=== PATIENT | female | born 1985 | race Two or more races ===

== ENCOUNTER 2024-12-10 14:09 | Outpatient (AMB) | payer MEDICAID, SELFPAY ==
[2024-12-10 14:31] VITALS: BP 131/82; PULSE 68; RESP 14; TEMP 36.6; O2SAT 96; BMI 35.3
--- NOTE | 2024-12-10 14:31 | OBCLNT_ITS ---
Vital Signs 12/10/24 14:31 Height 1.4 m Height Method Measured Weight 68.946 kg Weight Measurement Method Standing Scale BMI 35.3 BP 131/82 H Blood Pressure Source Automatic Cuff Blood Pressure Location Left Upper Arm Position Sitting Respiration 14 Pulse 68 Pulse Source Monitor Temp 98 F Temp Source Oral Pulse Oximetry (%) 96 Oxygen Delivery Method Room Air Allergies/Home Meds Allergies & Medications Allergies No Known Allergies Allergy (Verified 12/10/24 14:32) Medication Reconciliation No Known Home Medications 12/10/24 [History Confirmed 12/10/24] Intake Visit Data Collection New Patient or Established: New Patient (never been to [facility]) Reason for Visit:: Establishment of care, nausea Seen by Clinical Staff ONLY (RN/MA): No Air Traffic Coordinator Required: Yes Air Traffic Coordinator's name/title: JAIME ENCARNACION Do You Feel Safe at Home: Yes Authorities Contacted: N/A PCP or OBGYN visit in last 3 months: No Hx Now: Yes Are you currently on any form of Control: No Last menstrual period: 09/14/24 Pain Present Currently: No Pain Scale Used: Johnson-Mcfarland/Numerical Pain scale:: 0 Smoking Status Smoking Status: Never smoker Questionnaires Covid-19 Vaccine Questionnaire Has patient been vacinated for Covid-19 Have you been vacinated for Covid-19: No PHQ-9 PHQ-2 Over the last 2 weeks, how often have you been bothered by any of the following problems? 1. Little interest or pleasure in doing things: not at all 2. Feeling down, depressed, or hopeless: not at all Total score: 0 PHQ-9 3. Trouble falling or staying asleep, or sleeping too much: Not at all 4. Feeling tired or having little energy: Not at all 5. Poor appetite or overeating: Not at all 6. Feeling bad about yourself - or that you are a failure or have let yourself or your family down: Not at all 7. Trouble concentrating on things, such as reading the newspaper or watching television: Not at all 8. Moving or speaking so slowly that other people could have noticed? - Or the opposite - being so fidgety or restless that you have been moving around a lot more than usual: not at all 9. Thoughts that you would be better off or of hurting yourself in some way: Not at all Total score: 0 Source: Developed by Drs. Yung Cintron, Tracey Sood, Jesse Trejo and colleagues, with an educational migue from [employer]. Depression screen completed yes Social History Living Situation History Marital Status: Lives With: Family Housing Other:: MOBILE HOME Tobacco History Smoking Status: Never smoker Second Hand Smoke Exposure: No Alcohol History Alcohol Intake: Never Domestic Abuse History Do You Feel Safe at Home: Yes Past Medical History Past Medical History Have you ever been diagnosed with any of the following: History of Present Illness HPI Narrative Adri Carrizales is a 39-year-old woman presenting for establishment of care. She reports a last menstrual period of September 14, 2024, placing her at 12 weeks and 3 days gestation with an estimated due date of June 21, 2025. The patient's primary complaint is nausea associated with her . She denies vomiting but is experiencing significant nausea. The onset and duration of this symptom are not specified. No aggravating or alleviating factors are mentioned. The severity and impact on daily functioning are not detailed. Adri has a history of chronic hypertension, which is noted to be a concern in this . Her blood pressure is reported to be elevated during this visit, prompting the need for additional blood tests. The patient has had three previous vaginal deliveries, indicating this is her fourth . No complications from previous pregnancies are mentioned. Obstetric History - GPAL: A0 L3 - Current : - Gestational age: 12 weeks and 3 days by last menstrual period - Estimated due date: June 21, 2025 - Last menstrual period: September 14, 2024 - history: - Three previous vaginal deliveries Medical History - Chronic hypertension Medications and Supplements - vitamins Social History - Language: Uzbek-speaking, requires residential program coordinator Review of Systems General: Negative for fever, chills, fatigue, muscle aches, appetite or weight change. Gastrointestinal: Positive for nausea. Negative for vomiting. OB Ultrasound OB Ultrasound Gestational sac assessment: Presence, location, size, shape: - Gestational age: 12 weeks and 5 days - heart rate: 151 bpm (normal) OB Initial Visit OB Flowsheet OB Flowsheet Initial Weight: Not Recorded Date -?-?-?-?-?-?-?-?-?-?-?-?- EGA Weight Edema CTX Effacement BP Fundal ht Pres Dilation Effacement Station Visit Note Alb Glu FHR Mov 12/10/24 -?-?-?-?-?-?-?-?-?-?-?-?- 12w 3d 68.946 kg 131/82 Valeriy Carrizales, 39-year-old at 12w3d gestation (LMP 09/14/2024, [place] 06/21/2025), presents to establish care. No CTX/LOF/VB. No DUKES/VS, Epig/RUQ pain. Reports nausea without vomiting. History of chronic hypertension. BP elevated today. Air Traffic Coordinator used (Uzbek-speaking only). Ultrasound (12/10/2024): FHR 151 bpm, GA 12w5d (consistent with LMP). Assessment & Plan: at 12w3d with confirmed intrauterin e . History of chronic hypertension. Advanced maternal age. Continue vitamins Prescribe antiemetic for nausea Order labs due to elevated BP Add advanced maternal age to problem lis t Follow-up in 4 weeks for routine care and BP monitoring 145 Menstrual History Menstrual reliability: definite Flow: normal Menstrual regularity: regular Monthly: Yes Age at menarche: 14 On control pills at conception: No Date of positive home test: 11/01/24 Associated symptoms (LMP): Reports nausea and vomiting OB History : 4 Para: 3 # of Living Children: 3 Delivery History 1st : Child's name: ANNELIESE date: 09/27/10 sex: male Delivery type: vaginal History of depression before or after : No 2nd : Child's name: JENNY date: 04/07/12 sex: male Delivery type: vaginal History of depression before or after : No 3rd : Child's name: MAXIMUS date: 07/08/16 sex: male Delivery type: vaginal History of depression before or after : No Infection History & Risk Evaluation History of STDs: none Genetic Screening & History Genetic Screening/Teratology Counseling - Includes patient, baby's father, or anyone in either family with: 1. Patient's age 35 years or older as of estimated date of delivery: Yes 2. Thalassemia (Sammarinese, Occitan, Mediterranean, or Background); MCV less than 80: No 3. Neural Tube Defect (Meningomyelocele, Spina Bifida, or Anencephaly): No 4. Congenital Heart Defect: No 5. Down Syndrome: No 6. Edvin-Sachs (Ashkenazi Roman Catholic, Cajun, Japanese Bahamian): No 7. Jaren Disease (Ashkenazi Roman Catholic): No 8. Familial Dysautonomia (Ashkenazi Roman Catholic): No 9. Sickle Cell Disease or Trait (): No 10. Hemophilia or other blood disorders: No 11. Muscular Dystrophy: No 12. Cystic Fibrosis: No 13. Jose Angel's Chorea: No 14. Mental Retardation/Autism: No 15. Other inherited genetic or chromosomal disorder: No 16. Maternal Metabolic Disorder (EG,TYPE 1 Diabetes, PKU): No 17. Patient or baby's father had a child with defects not listed above: No 18. Recurrent loss or a stillbirth: No 19. Medications (including supplements, vitamins, herbs or otc drugs)/illicit/recreational drugs/alcohol since last menstrual period: No 20. Any other: No Infection History 1. Live with someone with TB or exposed to TB: No 2. Rash or viral illness since last menstrual period: No 3. Hepatitis B,C: No Other (see comments) Source: [employer] Review of Systems Gastrointestinal Gastrointestinal: Reports nausea and Reports vomiting Exam General General Appearance: alert, in no apparent distress and healthy appearing Head Head exam: atraumatic Neck Neck exam: Present normal inspection and trachea midline Chest Chest inspection: Present normal inspection and symmetric chest wall rise External exam: Present normal external exam; Absent tenderness Neuro Neurological exam: Present oriented X3 Psych Psychiatric exam: Present normal affect and normal mood Assessment & Plan Diagnosis / Problem List (1) Supervision of high risk , unspecified, first trimester: Status: Acute (2) Advanced maternal age affecting , antepartum: Status: Acute (3) Nausea and vomiting during : Status: Acute (4) Chronic hypertension during , antepartum: Status: Acute Plan Adri Carrizales, 39-year-old , presents at 12 weeks and 3 days gestation for establishment of care with a history of chronic hypertension. Intrauterine Assessment: Patient reports last menstrual period on September 14, 2024, giving an estimated due date of June 21, 2025. Ultrasound confirms gestational age of 12 weeks and 5 days, which is consistent with reported dates. heart rate of 151 bpm, which is within normal range. Plan: - Continue care - Follow-up appointment in 4 weeks - Prescribe vitamins Nausea of Assessment: Patient reports experiencing nausea without vomiting. Plan: - Prescribe antiemetic medication Chronic hypertension Assessment: Patient has a history of chronic hypertension. Blood pressure is noted to be elevated during this visit. Plan: - Order additional blood tests due to elevated blood pressure - Continue monitoring blood pressure throughout Advanced maternal age Assessment: Patient is 39 years old, which classifies her as advanced maternal age for this . Plan: - Add advanced maternal age to problem list - Provide appropriate counseling and monitoring throughout Office Procedures OB Clinic LOC & Office Proc's Nursing/Assessment Patient Status: Established Patient OB Clinic Nursing Assessment: Medication Reconciliation, Update PMH in EMR and Vital Signs OB Clinic Coordination of Care: AMA, Complex Care and Chronic Disease 1-5, Consent,records obtained, informed consent, Education Simp Pt/Fam, Lab and Imaging orders, Results/Orders obtained and Staff clarify orders Special Needs: Heart tones Established Patient Charge Established Patient Point Assignment: 155 Established Patient Point Charge: EP Level 4 (120-155) Bedside Ultrasounds US Transabdominal >14 weeks at bedside: Yes
== END 2024-12-10 15:08 | disposition home or self-care (01) ==
LOC: HODSOBC 14:09
PROVIDERS: Supervising Provider Obstetrics & Gynecology; Visit Provider Obstetrics & Gynecology
DX: O09.521 Supervision of elderly multigravida, first trimester (principal); O09.891 Supervision of other high risk pregnancies, first trimester; O10.911 Unspecified pre-existing hypertension complicating pregnancy, first trimester; O21.9 Vomiting of pregnancy, unspecified; Z3A.12 12 weeks gestation of pregnancy
CPT/HCPCS: 76805; 99214; G0463

== ENCOUNTER 2025-01-07 13:56 | Outpatient (AMB) | payer MEDICAID, SELFPAY ==
[2025-01-07 14:39] VITALS: BP 113/73; PULSE 86; RESP 15; TEMP 36.8; O2SAT 98; BMI 35.2
--- NOTE | 2025-01-07 14:39 | OBCLNT_ITS ---
Vital Signs 01/07/25 14:39 Height 1.4 m Height Method Stated Weight 69.003 kg Weight Measurement Method Standing Scale BMI 35.2 BP 113/73 Blood Pressure Source Automatic Cuff Blood Pressure Location Right Upper Arm Position Sitting Respiration 15 Pulse 86 Pulse Source Monitor Temp 98.3 F Temp Source Oral Pulse Oximetry (%) 98 Oxygen Delivery Method Room Air Allergies/Home Meds Allergies & Medications Allergies No Known Allergies Allergy (Verified 01/07/25 14:41) Medication Reconciliation vitamin with calcium no.72-iron 27 mg-folic acid 1 mg tablet ( Vitamins Plus Low Iron) 1 tab PO QDAY 90 days #90 tabs 12/19/24 [Rx Confirmed 01/07/25] aspirin 81 mg tablet,delayed release (Adult Aspirin Regimen) 81 mg PO QDAY #60 tabs 01/07/25 [Rx] azithromycin 500 mg tablet 1,000 mg (2 x 500 mg) PO QDAY 1 day #2 tabs 01/07/25 [Rx] azithromycin 500 mg tablet 1,000 mg (2 x 500 mg) PO QDAY 1 day #2 tabs 01/07/25 [Rx] nitrofurantoin monohydrate/macrocrystals 100 mg capsule (Macrobid) 100 mg PO BID 7 days #14 caps 01/07/25 [Rx] vitamin-ferrous fumarate 28 mg iron-folic acid 800 mcg tablet ( Vitamins with Minerals) 1 tab PO QDAY 30 days #60 tabs 01/07/25 [Rx] Intake Visit Data Collection New Patient or Established: Established Patient (seen at [facility] within 3 years) Reason for Visit:: CARE Seen by Clinical Staff ONLY (RN/MA): No Cinema Or Theatre Manager Required: No Do You Feel Safe at Home: Yes Authorities Contacted: N/A PCP or OBGYN visit in last 3 months: Yes Hx Now: Yes Are you currently on any form of Control: No Pain Present Currently: No Pain Scale Used: Johnson-Mcfarland/Numerical Pain scale:: 0 Smoking Status Smoking Status: Never smoker Questionnaires Covid-19 Vaccine Questionnaire Has patient been vacinated for Covid-19 Have you been vacinated for Covid-19: Yes PHQ-9 PHQ-2 Over the last 2 weeks, how often have you been bothered by any of the following problems? 1. Little interest or pleasure in doing things: not at all 2. Feeling down, depressed, or hopeless: not at all Total score: 0 PHQ-9 3. Trouble falling or staying asleep, or sleeping too much: Not at all 4. Feeling tired or having little energy: Not at all 5. Poor appetite or overeating: Not at all 6. Feeling bad about yourself - or that you are a failure or have let yourself or your family down: Not at all 7. Trouble concentrating on things, such as reading the newspaper or watching television: Not at all 8. Moving or speaking so slowly that other people could have noticed? - Or the opposite - being so fidgety or restless that you have been moving around a lot more than usual: not at all 9. Thoughts that you would be better off or of hurting yourself in some way: Not at all Total score: 0 Source: Developed by Drs. Yung Cintron, Tracey Sood, Jesse Trejo and colleagues, with an educational migue from [employer]. Depression screen completed yes Social History Living Situation History Marital Status: Single Lives With: Family Housing Other:: MOBILE HOME Tobacco History Smoking Status: Never smoker Second Hand Smoke Exposure: No Alcohol History Alcohol Intake: Never Domestic Abuse History Do You Feel Safe at Home: Yes Care OB Visit Log OB Flowsheet Initial Weight: Not Recorded Date -?-?-?-?-?-?-?-?-?-?-?-?- EGA Weight BP Alb Glu CTX Pres Fundal ht FHR Mov Dilation Station Effacement Hx Notes Visit Note 12/10/24 -?-?-?-?-?-?-?-?-?-?-?-?- 12w 3d 68.946 kg 131/82 145 Adri Carrizales, 39-year-old at 12w3d gestation (LMP 09/14/2024, [place] 06/21/2025), presents to establish care. No CTX/LOF/VB. No DUKES/VS, Epig/RUQ pain. Reports nausea without vomiting. History of chronic hypertension. BP elevated today. Cinema Or Theatre Manager used (Yi-speaking only). Ultrasound (12/10/2024): FHR 151 bpm, GA 12w5d (consistent with LMP). Assessment & Plan: at 12w3d with confirmed intrauterin e . History of chronic hypertension. Advanced maternal age. Continue vitamins Prescribe antiemetic for nausea Order labs due to elevated BP Add advanced maternal age to problem lis t Follow-up in 4 weeks for routine care and BP monitoring 01/07/25 -?--?-?-?-?-?-?-?-?-?-?-?- 16w 3d 69.003 kg 113/73 unknown 17 135 No OB complaints, light FM, need refill of pnv, no sab complaints schedule MFM referral for AMA, refill PNV, start low dose ASA, zithromax 1 gm to patient and partner, discuss with patient lab result and treatment. no sex x 1 week, condom x 2 week, discuss safe sex, also RX for macrobid 100mg bid x 7 for UTI, increase fluid. sab precaution. rtc 4 week schedule MFM referral for AM A, refill PNV, start low dose ASA, zithromax 1 gm to patient and partner, discuss with patient lab result and treatment. no sex x 1 week, condom x 2 week, discuss safe sex, also RX for macrobid 100mg bid x 7 for UTI, increase fluid. sab precaution. rtc 4 week, AFP today [place] Calculator Estimated Delivery Date Method Current WG Current Estimate 06/21/25 LMP (Certain) 16w 3d Other Estimates 06/22/25 Ultrasound #1 16w 2d Office Procedures OB Clinic LOC & Office Proc's Nursing/Assessment Patient Status: Established Patient OB Clinic Nursing Assessment: Medication Reconciliation, Update PMH in EMR and Vital Signs OB Clinic Coordination of Care: Complex Care and Chronic Disease 1-5, Con sent,records obtained, informed consent, Education Simp Pt/Fam, Lab and Imaging orders, Results/Orders obtained and Staff clarify orders Special Needs: Heart tones Established Patient Charge Established Patient Point Assignment: 135 Established Patient Point Charge: EP Level 4 (120-155) Assessment & Plan Diagnosis / Problem List (1) Advanced maternal age affecting , antepartum: Status: Acute (2) Normal in multigravida in second trimester: Status: Acute (3) Positive Chlamydia PCR: Status: Acute Plan RX zithromax 1 gm to pt and partner, no sex x 1 week, condom x 2 week, discuss safe sex and lab results, schedule MFM sono, rx for macrobid 100 bid x7/UTI, start low dose ASA and refill PNV, AFP today, sab precaution Additional Plan Follow Up: 4 Weeks (obc)
== END 2025-01-07 15:07 | disposition home or self-care (01) ==
LOC: HODSOBC 13:56
PROVIDERS: Supervising Provider Advanced Practice Midwife; Visit Provider Advanced Practice Midwife
DX: O09.522 Supervision of elderly multigravida, second trimester (principal); Z3A.16 16 weeks gestation of pregnancy; O09.892 Supervision of other high risk pregnancies, second trimester; O98.312 Other infections with a predominantly sexual mode of transmission complicating pregnancy, second trimester; A56.8 Sexually transmitted chlamydial infection of other sites; O23.42 Unspecified infection of urinary tract in pregnancy, second trimester; N39.0 Urinary tract infection, site not specified; O10.912 Unspecified pre-existing hypertension complicating pregnancy, second trimester
CPT/HCPCS: 99214; G0463

== ENCOUNTER 2025-02-17 13:43 | Outpatient (AMB) | payer MEDICAID, SELFPAY ==
[2025-02-17 13:49] VITALS: BP 114/78; PULSE 92; RESP 17; TEMP 36.7; O2SAT 97; BMI 36.1
--- NOTE | 2025-02-17 13:49 | AMB.OBVISIT ---
Vital Signs 02/17/25 13:49 Height 1.4 m Height Method Measured Weight 70.931 kg Weight Measurement Method Standing Scale BMI 36.1 BP 114/78 Blood Pressure Source Automatic Cuff Blood Pressure Location Right Upper Arm Position Sitting Respiration 17 Pulse 92 Pulse Source Monitor Temp 98.1 F Temp Source Temporal Artery Scan Pulse Oximetry (%) 97 Oxygen Delivery Method Room Air Allergies/Home Meds Allergies & Medications Allergies No Known Allergies Allergy (Verified 02/17/25 13:49) Medication Reconciliation vitamin with calcium no.72-iron 27 mg-folic acid 1 mg tablet ( Vitamins Plus Low Iron) 1 tab PO QDAY 90 days #90 tabs 12/19/24 [Rx Confirmed 02/17/25] aspirin 81 mg tablet,delayed release (Adult Aspirin Regimen) 81 mg PO QDAY #60 tabs 01/07/25 [Rx Confirmed 02/17/25] vitamin-ferrous fumarate 28 mg iron-folic acid 800 mcg tablet ( Vitamins with Minerals) 1 tab PO QDAY 30 days #60 tabs 01/07/25 [Rx Confirmed 02/17/25] azithromycin 500 mg tablet 1,000 mg (2 x 500 mg) PO QDAY 1 day #2 tabs 02/17/25 [Rx] azithromycin 500 mg tablet 1,000 mg (2 x 500 mg) PO QDAY 1 day #2 tabs 02/17/25 [Rx] Intake Visit Data Collection New Patient or Established: Established Patient (seen at [facility] within 3 years) Reason for Visit:: OBC Consent obtained for Telemed Visit: No Seen by Clinical Staff ONLY (RN/MA): No Mid Level Developer Required: No Do You Feel Safe at Home: Yes Authorities Contacted: N/A PCP or OBGYN visit in last 3 months: Yes Date of Last PCP or OBGYN visit: 01/07/25 Hx Now: Yes Are you currently on any form of Control: No Pain Present Currently: No Pain Scale Used: Johnson-Mcfarland/Numerical Pain scale:: 0 Smoking Status Smoking Status: Never smoker Questionnaires Covid-19 Vaccine Questionnaire Has patient been vacinated for Covid-19 Have you been vacinated for Covid-19: Yes PHQ-9 PHQ-2 Over the last 2 weeks, how often have you been bothered by any of the following problems? 1. Little interest or pleasure in doing things: not at all PHQ-9 8. Moving or speaking so slowly that other people could have noticed? - Or the opposite - being so fidgety or restless that you have been moving around a lot more than usual: not at all Source: Developed by Drs. Yung Cintron, Tracey Sood, Jesse Trejo and colleagues, with an educational migue from [employer]. Social History Living Situation History Lives With: Family Housing Other:: MOBILE HOME Tobacco History Smoking Status: Never smoker Second Hand Smoke Exposure: No Alcohol History Alcohol Intake: Never Domestic Abuse History Do You Feel Safe at Home: Yes Care OB Visit Log OB Flowsheet Initial Weight: Not Recorded Date <del>?</del> EGA Weight BP Alb Glu CTX Pres Fundal ht FHR Mov Dilation Station Effacement Hx Notes Visit Note 12/10/24 <del>?</del> 12w 3d 68.946 kg 131/82 145 Adri Carrizales, 39-year-old at 12w3d gestation (LMP 09/14/2024, [place] 06/21/2025), presents to establish care. No CTX/LOF/VB. No DUKES/VS, Epig/RUQ pain. Reports nausea without vomiting. History of chronic hypertension. BP elevated today. Mid Level Developer used (Citizen Of [place]-speaking only). Ultrasound (12/10/2024): FHR 151 bpm, GA 12w5d (consistent with LMP). Assessment & Plan: at 12w3d with confirmed intrauterine . History of chronic hypertension. Advanced maternal age. Continue vitamins Prescribe antiemetic for nausea Order labs due to elevated BP Add advanced maternal age to problem list Follow-up in 4 weeks for routine care and BP monitoring 01/07/25 <del>?</del> 16w 3d 69.003 kg 113/73 unknown 17 135 No OB complaints, light FM, need refill of pnv, no sab complaints schedule MFM referral for AMA, refill PNV, start low dose ASA, zithromax 1 gm to patient and partner, discuss with patient lab result and treatment. no sex x 1 week, condom x 2 week, discuss safe sex, also RX for macrobid 100mg bid x 7 for UTI, increase fluid. sab precaution. rtc 4 week schedule MFM referral for AMA, refill PNV, start low dose ASA, zithromax 1 gm to patient and partner, discuss with patient lab result and treatment. no sex x 1 week, condom x 2 week, discuss safe sex, also RX for macrobid 100mg bid x 7 for UTI, increase fluid. sab precaution. rtc 4 week, AFP today 02/17/25 <del>?</del> 22w 2d 70.931 kg 114/78 absent unknown 22 145 active no OB complaints.fetus active. patient did not P/U zithromax for her or partner, still sex active, , mfm appt. 03/11. no PTL complaints refill zithromax x 2 for pt and partner, no sex, reviewed CT+ with patient and discuss safe sex, keep MFM appt 03/11 [place] Calculator Estimated Delivery Date Method Current WG Current Estimate 06/21/25 LMP (Certain) 22w 2d Other Estimates 06/22/25 Ultrasound #1 22w 1d Office Procedures OB Clinic LOC & Office Proc's Nursing/Assessment Patient Status: Established Patient OB Clinic Nursing Assessment: Medication Reconciliation, Update PMH in EMR and Vital Signs OB Clinic Coordination of Care: Complex Care and Chronic Disease 1-5, Consent,records obtained, informed consent, Education Simp Pt/Fam and Staff clarify orders Special Needs: Heart tones Established Patient Charge Established Patient Point Assignment: 115 Established Patient Point Charge: EP Level 3 (80-115) Assessment & Plan Diagnosis / Problem List (1) Normal in multigravida in second trimester: Status: Acute Plan no sex, discuss safe sex, refill zithromax for patient and partner, keep mfm appt 03/11, discuss ptl precaution, hydrate, rtc 4 wk obc. ERIC [place] Additional Plan Follow Up: 4 Weeks (obc/ERIC)
== END 2025-02-17 14:25 | disposition home or self-care (01) ==
LOC: HODSOBC 13:43
PROVIDERS: Supervising Provider Advanced Practice Midwife; Visit Provider Advanced Practice Midwife
DX: O09.522 Supervision of elderly multigravida, second trimester (principal); Z3A.22 22 weeks gestation of pregnancy
CPT/HCPCS: 99213; G0463

== ENCOUNTER 2025-03-17 13:46 | Outpatient (AMB) | payer MEDICAID, SELFPAY ==
[2025-03-17 13:48] VITALS: BP 118/78; PULSE 90; RESP 18; TEMP 36.6; O2SAT 98; BMI 36.6
--- NOTE | 2025-03-17 13:48 | OBCLNT_ITS ---
Vital Signs 03/17/25 13:48 Height 1.4 m Height Method Stated Weight 71.781 kg Weight Measurement Method Standing Scale BMI 36.6 BP 118/78 Blood Pressure Source Automatic Cuff Blood Pressure Location Left Upper Arm Position Sitting Respiration 18 Pulse 90 Pulse Source Monitor Temp 97.9 F Temp Source Oral Pulse Oximetry (%) 98 Oxygen Delivery Method Room Air Allergies/Home Meds Allergies & Medications Allergies No Known Allergies Allergy (Verified 03/17/25 13:54) Medication Reconciliation vitamins with calcium no.72-iron 27 mg-folic acid 1 mg tablet ( Vitamins Plus Low Iron) 1 tab PO QDAY 90 days #90 tabs 12/19/24 [Rx Confirmed 03/17/25] aspirin 81 mg tablet,delayed release (Adult Aspirin Regimen) 81 mg PO QDAY #60 tabs 01/07/25 [Rx Confirmed 03/17/25] vitamin-ferrous fumarate 28 mg iron-folic acid 800 mcg tablet ( Vitamins with Minerals) 1 tab PO QDAY 30 days #60 tabs 01/07/25 [Rx Confirmed 03/17/25] aspirin 81 mg tablet,delayed release (Adult Aspirin Regimen) 81 mg PO QDAY #60 tabs 03/17/25 [Rx] Intake Visit Data Collection New Patient or Established: Established Patient (seen at [facility] within 3 years) Reason for Visit:: CARE Seen by Clinical Staff ONLY (RN/MA): No Exploration Engineer Required: No Do You Feel Safe at Home: Yes Authorities Contacted: N/A PCP or OBGYN visit in last 3 months: Yes Hx Now: Yes Are you currently on any form of Control: No Pain Present Currently: No Pain Scale Used: Johnson-Mcfarland/Numerical Pain scale:: 0 Smoking Status Smoking Status: Never smoker Questionnaires Covid-19 Vaccine Questionnaire Has patient been vacinated for Covid-19 Have you been vacinated for Covid-19: No PHQ-9 PHQ-2 Over the last 2 weeks, how often have you been bothered by any of the following problems? 1. Little interest or pleasure in doing things: not at all 2. Feeling down, depressed, or hopeless: not at all Total score: 0 PHQ-9 3. Trouble falling or staying asleep, or sleeping too much: Not at all 4. Feeling tired or having little energy: Not at all 5. Poor appetite or overeating: Not at all 6. Feeling bad about yourself - or that you are a failure or have let yourself or your family down: Not at all 7. Trouble concentrating on things, such as reading the newspaper or watching television: Not at all 8. Moving or speaking so slowly that other people could have noticed? - Or the opposite - being so fidgety or restless that you have been moving around a lot more than usual: not at all 9. Thoughts that you would be better off or of hurting yourself in some way: Not at all Total score: 0 Source: Developed by Drs. Yung Cintron, Tracey Sood, Jesse Trejo and colleagues, with an educational migue from [employer]. Depression screen completed yes Social History Living Situation History Lives With: Family Housing Other:: MOBILE HOME Tobacco History Smoking Status: Never smoker Second Hand Smoke Exposure: No Alcohol History Alcohol Intake: Never Domestic Abuse History Do You Feel Safe at Home: Yes Care OB Visit Log OB Flowsheet Initial Weight: Not Recorded Date -?-?-?-?-?-?-?-?-?-?-?-?- EGA Weight BP Alb Glu CTX Pres Fundal ht FHR Mov Dilation Station Effacement Hx Notes Visit Note 12/10/24 -?-?-?-?-?-?-?-?-?-?-?-?- 12w 3d 68.946 kg 131/82 145 Adri Carrizales, 39-year-old at 12w3d gestation (LMP 09/14/2024, [place] 06/21/2025), presents to establish care. No CTX/LOF/VB. No DUKES/VS, Epig/RUQ pain. Reports nausea without vomiting. History of chronic hypertension. BP elevated today. Exploration Engineer used (Lithuanian-speaking only). Ultrasound (12/10/2024): FHR 151 bpm, [place] 12w5d (consistent with LMP). Assessment & Plan: at 12w3d with confirmed intrauterin e . History of chronic hypertension. Advanced maternal age. Continue vitamins Prescribe antiemetic for nausea Order labs due to elevated BP Add advanced maternal age to problem lis t Follow-up in 4 weeks for routine care and BP monitoring 01/07/25 -?-?-?-?-?-?-?-?-?-?-?-?- 16w 3d 69.003 kg 113/73 unknown 17 135 No OB complaints, light FM, need refill of pnv, no sab complaints schedule MFM referral for AMA, refill PNV, start low dose ASA, zithromax 1 gm to patient and partner, discuss with patient lab result and treatment. no sex x 1 week, condom x 2 week, discuss safe sex, also RX for macrobid 100mg bid x 7 for UTI, increase fluid. sab precaution. rtc 4 week schedule MFM referral for AM A, refill PNV, start low dose ASA, zithromax 1 gm to patient and partner, discuss with patient lab result and treatment. no sex x 1 week, condom x 2 week, discuss safe sex, also RX for macrobid 100mg bid x 7 for UTI, increase fluid. sab precaution. rtc 4 week, AFP today 02/17/25 -?-?--?-?-?-?-?-?-?-?-?-?- 22w 2d 70.931 kg 114/78 absent unknown 22 145 active no OB complaints.fetus active. patient did not P/U zithromax for her or partner, still sex active, , mfm appt. 03/11. no PTL complaints refill zithromax x 2 for pt and partner, no sex, reviewed CT+ with patient and discuss safe sex, keep MFM appt 03/1103/17/25 -?-?--?-?-?-?-?-?-?-?-?-?- 26w 2d 71.781 kg 118/78 absent unknown 25 145 active Denies OB complaints. Denies PIH complaints. Reports movement. Patient and partner completed Zithromax as directed. And Macrobid for UTI. Denies leaking, bleeding, contractions. Maternal- medicine follow-up in 6 to 8 weeks Keep appointment for maternal- medicine follow-up sono. Start low-dose baby aspirin. Prescription called to pharmacy. NuSwab today. Ordered third trimester labs along with 24-hour urine and PIH labs. Discussed danger signs and symptoms PTL precautions. Increase fluids. Return in 3 weeks OB check [place] Calculator Estimated Delivery Date Method Current WG Current Estimate 06/21/25 LMP (Certain) 26w 2d Other Estimates 06/22/25 Ultrasound #1 26w 1d Notes Visit Date: 03/17/25 Last Updated by: Dea Lance CNM 39 yo LMP 09/14/24. EDC 06/21/25. OB panel: O+,abs+: Anti [place],no titer. , rpr;;nr, rub imm, hbsag-,hiv-,HC-, GC-/CT+(treated). UTI/tx. UT-, NIPT- /girl. carrier screen-.AFP- Office Procedures OB Clinic LOC & Office Proc's Nursing/Assessment Patient Status: Established Patient OB Clinic Nursing Assessment: Medication Reconciliation, Update PMH in EMR and Vital Signs OB Clinic Coordination of Care: AMA, Complex Care and Chronic Disease 1-5, Consent,records obtained, informed consent, Education Simp Pt/Fam, 1 Ins Authorization, Lab and Imaging orders, Results/Orders obtained and Staff clarify orders Special Needs: Heart tones Established Patient Charge Established Patient Point Assignment: 170 Established Patient Point Charge: EP Level 5 (160-above) Assessment & Plan Diagnosis / Problem List (1) Normal in multigravida in second trimester: Status: Acute (2) Advanced maternal age affecting , antepartum: Status: Acute Plan nuswab for GC?CT ERIC, 3rd tri lab, PIH panel, 24hr urine, f/u mfm in 6 week, call for sono results. discuss PIH precaution, refill low dose ASA. discuss ptl precaution, hydrate. rtc 3 week Additional Plan Follow Up: 3 Weeks (obc)
== END 2025-03-17 14:34 | disposition home or self-care (01) ==
LOC: HODSOBC 13:46
PROVIDERS: Supervising Provider Advanced Practice Midwife; Visit Provider Advanced Practice Midwife
DX: O09.522 Supervision of elderly multigravida, second trimester (principal); Z36.85 Encounter for antenatal screening for Streptococcus B; Z3A.26 26 weeks gestation of pregnancy
CPT/HCPCS: 99215; G0463

== ENCOUNTER 2025-04-07 13:44 | Outpatient (AMB) | payer MEDICAID, SELFPAY ==
[2025-04-07 13:54] VITALS: BP 113/74; PULSE 98; RESP 18; TEMP 36.7; O2SAT 97; BMI 36.6
--- NOTE | 2025-04-07 13:54 | OBCLNT_ITS ---
Vital Signs 04/07/25 13:54 Height 1.4 m Height Method Stated Weight 71.894 kg Weight Measurement Method Standing Scale BMI 36.6 BP 113/74 Blood Pressure Source Automatic Cuff Blood Pressure Location Left Upper Arm Position Sitting Respiration 18 Pulse 98 Pulse Source Monitor Temp 98.1 F Temp Source Oral Pulse Oximetry (%) 97 Oxygen Delivery Method Room Air Allergies/Home Meds Allergies & Medications Allergies No Known Allergies Allergy (Verified 04/07/25 13:54) Medication Reconciliation vitamins with calcium no.72-iron 27 mg-folic acid 1 mg tablet ( Vitamins Plus Low Iron) 1 tab PO QDAY 90 days #90 tabs 12/19/24 [Rx Confirmed 04/07/25] aspirin 81 mg tablet,delayed release (Adult Aspirin Regimen) 81 mg PO QDAY #60 tabs 01/07/25 [Rx Confirmed 04/07/25] vitamin-ferrous fumarate 28 mg iron-folic acid 800 mcg tablet ( Vitamins with Minerals) 1 tab PO QDAY 30 days #60 tabs 01/07/25 [Rx Confirmed 04/07/25] aspirin 81 mg tablet,delayed release (Adult Aspirin Regimen) 81 mg PO QDAY #60 tabs 03/17/25 [Rx Confirmed 04/07/25] blood sugar diagnostic (Blood Glucose Test strips) #10 ea 04/07/25 [Rx] blood-glucose meter #1 ea 04/07/25 [Rx] lancets #100 ea 04/07/25 [Rx] Intake Visit Data Collection New Patient or Established: Established Patient (seen at [facility] within 3 years) Reason for Visit:: CARE Seen by Clinical Staff ONLY (RN/MA): No Emergency Room Orderly Required: No Do You Feel Safe at Home: Yes Authorities Contacted: N/A PCP or OBGYN visit in last 3 months: Yes Hx Now: Yes Are you currently on any form of Control: No Pain Present Currently: No Pain Scale Used: Johnson-Mcfarland/Numerical Pain scale:: 0 Smoking Status Smoking Status: Never smoker Questionnaires Covid-19 Vaccine Questionnaire Has patient been vacinated for Covid-19 Have you been vacinated for Covid-19: No PHQ-9 PHQ-2 Over the last 2 weeks, how often have you been bothered by any of the following problems? 1. Little interest or pleasure in doing things: not at all 2. Feeling down, depressed, or hopeless: not at all Total score: 0 PHQ-9 3. Trouble falling or staying asleep, or sleeping too much: Not at all 4. Feeling tired or having little energy: Not at all 5. Poor appetite or overeating: Not at all 6. Feeling bad about yourself - or that you are a failure or have let yourself or your family down: Not at all 7. Trouble concentrating on things, such as reading the newspaper or watching television: Not at all 8. Moving or speaking so slowly that other people could have noticed? - Or the opposite - being so fidgety or restless that you have been moving around a lot more than usual: not at all 9. Thoughts that you would be better off or of hurting yourself in some way: Not at all Total score: 0 Source: Developed by Drs. Yung Cintron, Tracey Sood, Jesse Trejo and colleagues, with an educational migue from [employer]. Depression screen completed yes Social History Living Situation History Lives With: Family Housing Other:: MOBILE HOME Tobacco History Smoking Status: Never smoker Second Hand Smoke Exposure: No Alcohol History Alcohol Intake: Never Domestic Abuse History Do You Feel Safe at Home: Yes Care OB Visit Log OB Flowsheet Initial Weight: Not Recorded Date -?-?-?-?-?-?-?-?-?-?-?-?- EGA Weight BP Alb Glu CTX Pres Fundal ht FHR Mov Dilation Station Effacement Hx Notes Visit Note 12/10/24 -?-?-?-?-?-?-?-?-?-?-?-?- 12w 3d 68.946 kg 131/82 145 Adri Carrizales, 39-year-old at 12w3d gestation (LMP 09/14/2024, [place] 06/21/2025), presents to establish care. No CTX/LOF/VB. No DUKES/VS, Epig/RUQ pain. Reports nausea without vomiting. History of chronic hypertension. BP elevated today. Emergency Room Orderly used (Frisian-speaking only). Ultrasound (12/10/2024): FHR 151 bpm, [place] 12w5d (consistent with LMP). Assessment & Plan: at 12w3d with confirmed intrauterin e . History of chronic hypertension. Advanced maternal age. Continue vitamins Prescribe antiemetic for nausea Order labs due to elevated BP Add advanced maternal age to problem lis t Follow-up in 4 weeks for routine care and BP monitoring 01/07/25 -?-?-?-?-?-?-?-?-?-?-?-?- 16w 3d 69.003 kg 113/73 unknown 17 135 No OB complaints, light FM, need refill of pnv, no sab complaints schedule MFM referral for AMA, refill PNV, start low dose ASA, zithromax 1 gm to patient and partner, discuss with patient lab result and treatment. no sex x 1 week, condom x 2 week, discuss safe sex, also RX for macrobid 100mg bid x 7 for UTI, increase fluid. sab precaution. rtc 4 week schedule MFM referral for AM A, refill PNV, start low dose ASA, zithromax 1 gm to patient and partner, discuss with patient lab result and treatment. no sex x 1 week, condom x 2 week, discuss safe sex, also RX for macrobid 100mg bid x 7 for UTI, increase fluid. sab precaution. rtc 4 week, AFP today 02/17/25 -?-?-?-?-?-?-?-?-?-?-?-?- 22w 2d 70.931 kg 114/78 absent unknown 22 145 active no OB complaints.fetus active. patient did not P/U zithromax for her or partner, still sex active, , mfm appt. 03/11. no PTL complaints refill zithromax x 2 for pt and partner, no sex, reviewed CT+ with patient and discuss safe sex, keep MFM appt 03/1103/17/25 -?-?-?-?-?-?-?-?-?-?-?-?- 26w 2d 71.781 kg 118/78 absent unknown 25 145 active Denies OB complaints. Denies PIH complaints. Reports movement. Patient and partner completed Zithromax as directed. And Macrobid for UTI. Denies leaking, bleeding, contractions. Maternal- medicine follow-up in 6 to 8 weeks Keep appointment for maternal- medicine follow-up sono. Start low-dose baby aspirin. Prescription called to pharmacy. NuSwab today. Ordered third trimester labs along with 24-hour urine and PIH labs. Discussed danger signs and symptoms PTL precautions. Increase fluids. Return in 3 weeks OB check 04/07/25 -?-?-?-?-?-?-?-?-?-?-?-?- 29w 2d 71.894 kg 113/74 absent unknown 29 140 active No OB complaints today. Reports movement. Denies leaking, bleeding, contractions. Reports compliance with safe sex. Reviewed labs. Discussed labor precautions. Tdap today. Increase fluids. Return in 2 weeks OB check Reviewed labs. Discussed pr eterm labor precautions. Tdap today. Increase fluids. Return in 2 weeks OB check. Discussed 3-hour results. Ordered glucometer, lancets, test strips. Discussed GDM diet and glucose glucose monitoring with patient return in 3 weeks. Will order NST BPP next visit [place] Calculator Estimated Delivery Date Method Current WG Current Estimate 06/21/25 LMP (Certain) 29w 2d Other Estimates 06/22/25 Ultrasound #1 29w 1d 06/21/25 Ultrasound #2 29w 2d 06/21/25 Manual 29w 2d MFM sono on 02/12 9: EFW was 93% Notes Visit Date: 04/07/25 Last Updated by: Dea Lance CNM 03/10: GC/CT ERIC-, A1: 5.0, 3hr gtt: 1,2,3 value high. + GDM Visit Date: 03/17/25 Last Updated by: Dea Lance CNM 39 yo LMP 09/14/24. EDC 06/21/25. OB panel: O+,abs+: Anti [place],no titer. , rpr;;nr, rub imm, hbsag-,hiv-,HC-, GC-/CT+(treated). UTI/tx. UT-, NIPT- /girl. carrier screen-.AFP- Office Procedures OB Clinic LOC & Office Proc's Nursing/Assessment Patient Status: Established Patient OB Clinic Nursing Assessment: Medication Reconciliation, Update PMH in EMR and Vital Signs OB Clinic Coordination of Care: Complex Care and Chronic Disease 1-5, Consent,records obtained, informed consent, Education Simp Pt/Fam, 1 Ins Authorization, Lab and Imaging orders, Results/Orders obtained and Staff clarify orders Special Needs: Heart tones Established Patient Charge Established Patient Point Assignment: 150 Established Patient Point Charge: EP Level 4 (120-155) Immunizations diphth,pertus(acell),tetanus 2.5 Lf unit-8 mcg-5 Lf/0.5mL IM syringe Performing Provider: Dea Lance CNM Performing Location: [facility] Administered by: Donya Barreto MA on 04/07/25 16:06 Dose Route Admin Location Dispensed Lot Number Expiration Date [facility] Recycling Assistant 0.5 mL IM Left Deltoid 0.5 mL [id number] 06/06/27 16452-822-21 [place] VIS Given Date VIS Provided VIS Publication Date 04/07/25 Single Vaccine 24 Eligibility Eligibility Date Funding Source [facility] Assessment & Plan Diagnosis / Problem List (1) Encounter for supervision of high risk in third trimester, antepartum: Status: Acute (2) Diet controlled White classification A1 gestational diabetes mellitus (GDM): Status: Acute Plan Discussed GDM diet. I discussed glucose monitoring in the morning and then every hour after each meal. I ordered glucometer, lancets, strips. Discussed labs. Discussed labor precautions. Increase fluids. Tdap today. Return in 2 weeks OB check. Order NST BPP next visit. TDAP Additional Plan Follow Up: 2 Weeks (obc)
== END 2025-04-07 14:42 | disposition home or self-care (01) ==
LOC: HODSOBC 13:44
PROVIDERS: Supervising Provider Advanced Practice Midwife; Visit Provider Advanced Practice Midwife
DX: O09.523 Supervision of elderly multigravida, third trimester (principal); O09.893 Supervision of other high risk pregnancies, third trimester; O24.410 Gestational diabetes mellitus in pregnancy, diet controlled; Z3A.29 29 weeks gestation of pregnancy; Z23 Encounter for immunization
CPT/HCPCS: 90471; 90715; 99214; G0463

== ENCOUNTER 2025-04-21 14:27 | Outpatient (AMB) | payer MEDICAID, SELFPAY ==
[2025-04-21 14:56] VITALS: BP 113/73; PULSE 84; RESP 16; TEMP 36.8; O2SAT 98; BMI 37.0
--- NOTE | 2025-04-21 14:56 | OBCLNT_ITS ---
Vital Signs 04/21/25 14:56 Height 1.4 m Height Method Stated Weight 72.745 kg Weight Measurement Method Standing Scale BMI 37.0 BP 113/73 Blood Pressure Source Automatic Cuff Blood Pressure Location Left Upper Arm Position Sitting Respiration 16 Pulse 84 Pulse Source Monitor Temp 98.2 F Temp Source Oral Pulse Oximetry (%) 98 Oxygen Delivery Method Room Air Allergies/Home Meds Allergies & Medications Allergies No Known Allergies Allergy (Verified 04/21/25 14:57) Medication Reconciliation vitamins with calcium no.72-iron 27 mg-folic acid 1 mg tablet ( Vitamins Plus Low Iron) 1 tab PO QDAY 90 days #90 tabs 12/19/24 [Rx Confirmed 04/21/25] aspirin 81 mg tablet,delayed release (Adult Aspirin Regimen) 81 mg PO QDAY #60 tabs 01/07/25 [Rx Confirmed 04/21/25] vitamin-ferrous fumarate 28 mg iron-folic acid 800 mcg tablet ( Vitamins with Minerals) 1 tab PO QDAY 30 days #60 tabs 01/07/25 [Rx Confirmed 04/21/25] aspirin 81 mg tablet,delayed release (Adult Aspirin Regimen) 81 mg PO QDAY #60 tabs 03/17/25 [Rx Confirmed 04/21/25] blood-glucose meter #1 ea 04/07/25 [Rx Confirmed 04/21/25] lancets #100 ea 04/07/25 [Rx Confirmed 04/21/25] blood sugar diagnostic (Blood Glucose Test strips) #10 ea 04/21/25 [Rx] metronidazole 500 mg tablet 500 mg PO BID 7 days #14 tabs 04/21/25 [Rx] metronidazole 500 mg tablet 500 mg PO BID 7 days #14 tabs 04/21/25 [Rx] Intake Visit Data Collection New Patient or Established: Established Patient (seen at [facility] within 3 years) Reason for Visit:: CARE Seen by Clinical Staff ONLY (RN/MA): No Typewriter Ribbon Winder Required: No Do You Feel Safe at Home: Yes Authorities Contacted: N/A PCP or OBGYN visit in last 3 months: Yes Hx Now: Yes Are you currently on any form of Control: No Pain Present Currently: No Pain Scale Used: Johnson-Mcfarland/Numerical Pain scale:: 0 Smoking Status Smoking Status: Never smoker Questionnaires Covid-19 Vaccine Questionnaire Has patient been vacinated for Covid-19 Have you been vacinated for Covid-19: Yes PHQ-9 PHQ-2 Over the last 2 weeks, how often have you been bothered by any of the following problems? 1. Little interest or pleasure in doing things: not at all 2. Feeling down, depressed, or hopeless: not at all Total score: 0 PHQ-9 3. Trouble falling or staying asleep, or sleeping too much: Not at all 4. Feeling tired or having little energy: Not at all 5. Poor appetite or overeating: Not at all 6. Feeling bad about yourself - or that you are a failure or have let yourself or your family down: Not at all 8. Moving or speaking so slowly that other people could have noticed? - Or the opposite - being so fidgety or restless that you have been moving around a lot more than usual: not at all 9. Thoughts that you would be better off or of hurting yourself in some way: Not at all Source: Developed by Drs. Yung Cintron, Tracey Sood, Jesse Trejo and colleagues, with an educational migue from [employer]. Depression screen completed yes Social History Living Situation History Lives With: Family Housing Other:: MOBILE HOME Tobacco History Smoking Status: Never smoker Second Hand Smoke Exposure: No Alcohol History Alcohol Intake: Never Domestic Abuse History Do You Feel Safe at Home: Yes Care OB Visit Log OB Flowsheet Initial Weight: Not Recorded Date -?-?-?-?-?-?-?-?-?-?-?-?- EGA Weight BP Alb Glu CTX Pres Fundal ht FHR Mov Dilation Station Effacement Hx Notes Visit Note 12/10/24 -?-?-?-?-?-?-?-?-?-?-?-?- 12w 3d 68.946 kg 131/82 145 Adri Carrizales, 39-year-old at 12w3d gestation (LMP 09/14/2024, [place] 06/21/2025), presents to establish care. No CTX/LOF/VB. No DUKES/VS, Epig/RUQ pain. Reports nausea without vomiting. History of chronic hypertension. BP elevated today. Typewriter Ribbon Winder used (Czech-speaking only). Ultrasound (12/10/2024): FHR 151 bpm, [place] 12w5d (consistent with LMP). Assessment & Plan: at 12w3d with confirmed intrauterin e . History of chronic hypertension. Advanced maternal age. Continue vitamins Prescribe antiemetic for nausea Order labs due to elevated BP Add advanced maternal age to problem lis t Follow-up in 4 weeks for routine care and BP monitoring 01/07/25 -?-?-?-?-?-?-?-?-?-?-?-?- 16w 3d 69.003 kg 113/73 unknown 17 135 No OB complaints, light FM, need refill of pnv, no sab complaints schedule MFM referral for AMA, refill PNV, start low dose ASA, zithromax 1 gm to patient and partner, discuss with patient lab result and treatment. no sex x 1 week, condom x 2 week, discuss safe sex, also RX for macrobid 100mg bid x 7 for UTI, increase fluid. sab precaution. rtc 4 week schedule MFM referral for AM A, refill PNV, start low dose ASA, zithromax 1 gm to patient and partner, discuss with patient lab result and treatment. no sex x 1 week, condom x 2 week, discuss safe sex, also RX for macrobid 100mg bid x 7 for UTI, increase fluid. sab precaution. rtc 4 week, AFP today 02/17/25 -?-?-?-?-?-?-?-?-?-?-?-?- 22w 2d 70.931 kg 114/78 absent unknown 22 145 active no OB complaints.fetus active. patient did not P/U zithromax for her or partner, still sex active, , mfm appt. 03/11. no PTL complaints refill zithromax x 2 for pt and partner, no sex, reviewed CT+ with patient and discuss safe sex, keep MFM appt 03/1103/17/25 -?-?-?-?-?-?-?-?-?-?-?-?- 26w 2d 71.781 kg 118/78 absent unknown 25 145 active Denies OB complaints. Denies PIH complaints. Reports movement. Patient and partner completed Zithromax as directed. And Macrobid for UTI. Denies leaking, bleeding, contractions. Maternal- medicine follow-up in 6 to 8 weeks Keep appointment for maternal- medicine follow-up sono. Start low-dose baby aspirin. Prescription called to pharmacy. NuSwab today. Ordered third trimester labs along with 24-hour urine and PIH labs. Discussed danger signs and symptoms PTL precautions. Increase fluids. Return in 3 weeks OB check 04/07/25 -?-?-?-?-?-?-?-?-?-?-?-?- 29w 2d 71.894 kg 113/74 absent unknown 29 140 active No OB complaints today. Reports movement. Denies leaking, bleeding, contractions. Reports compliance with safe sex. Reviewed labs. Discussed labor precautions. Tdap today. Increase fluids. Return in 2 weeks OB check Reviewed labs. Discussed pr eterm labor precautions. Tdap today. Increase fluids. Return in 2 weeks OB check. Discussed 3-hour results. Ordered glucometer, lancets, test strips. Discussed GDM diet and glucose glucose monitoring with patient return in 3 weeks. Will order NST BPP next visit 04/21/25 -?-?-?-?-?-?-?-?-?-?-?-?- 31w 2d 72.745 kg 113/73 100 mg/dL (74-106) absent unknow n 31 135 active Reports movement. Denies labor. Denies contractions. Denies bleeding. Reports compliance with diet and activity. Test of cure for GC and Chlamydia were negative. And log ging results. Schedule weekly NST BPP. I reordered test strips and Flagyl 500 p.o. twice daily for trichomoniasis. Discussed labor precautions and kick count. Increase fluids. Return in 2 weeks for OB check [place] Calculator Estimated Delivery Date Method Current WG Current Estimate 06/21/25 LMP (Certain) 31w 2d Other Estimates 06/22/25 Ultrasound #1 31w 1d 06/21/25 Ultrasound #2 31w 2d 06/21/25 Manual 31w 2d MFM sono on 02/12 9: EFW was 93% Notes Visit Date: 04/07/25 Last Updated by: Dea Lance CNM 03/10: GC/CT ERIC-, A1: 5.0, 3hr gtt: 1,2,3 value high. + GDM Visit Date: 03/17/25 Last Updated by: Dea Lance CNM 39 yo LMP 09/14/24. EDC 06/21/25. OB panel: O+,abs+: Anti [place],no titer. , rpr;;nr, rub imm, hbsag-,hiv-,HC-, GC-/CT+(treated). UTI/tx. UT-, NIPT- /girl. carrier screen-.AFP- Office Procedures OB Clinic LOC & Office Proc's Nursing/Assessment Patient Status: Established Patient OB Clinic Nursing Assessment: Medication Reconciliation, Update PMH in EMR and Vital Signs OB Clinic Coordination of Care: AMA, Complex Care and Chronic Disease 1-5, Consent,records obtained, informed consent, Education Simp Pt/Fam, 1 Ins Authorization, Lab and Imaging orders, Results/Orders obtained and Staff clarify orders Special Needs: Heart tones Established Patient Charge Established Patient Point Assignment: 170 Established Patient Point Charge: EP Level 5 (160-above) Results Glucose Glucose 100 mg/dL Last Edit by Jessenia Troy MA on 04/21/25 15:22 Assessment & Plan Diagnosis / Problem List (1) Diet controlled White classification A1 gestational diabetes mellitus (GDM): Status: Acute (2) Encounter for supervision of high risk in third trimester, antepartum: Status: Acute Plan Health educator taught patient how to log sugars, how to check sugars with glucometer. GDM diet discussed. Schedule weekly NST BPP's. Refill test trips. Flagyl 500 p.o. twice daily for 7 days for positive trichomoniasis. Discussed labor precautions and kick count twice daily. Return in 2 weeks OB check Additional Plan Follow Up: 2 Weeks (obc)
== END 2025-04-21 15:44 | disposition home or self-care (01) ==
LOC: HODSOBC 14:27
PROVIDERS: Supervising Provider Advanced Practice Midwife; Visit Provider Advanced Practice Midwife
DX: O09.523 Supervision of elderly multigravida, third trimester (principal); O09.893 Supervision of other high risk pregnancies, third trimester; O24.410 Gestational diabetes mellitus in pregnancy, diet controlled; O98.313 Other infections with a predominantly sexual mode of transmission complicating pregnancy, third trimester; A59.9 Trichomoniasis, unspecified; Z3A.31 31 weeks gestation of pregnancy; Z79.82 Long term (current) use of aspirin
CPT/HCPCS: 82948; 99215; G0463

== ENCOUNTER 2025-05-05 08:58 | Outpatient (AMB) | payer MEDICAID, SELFPAY ==
[2025-05-05 09:07] VITALS: BP 112/74; PULSE 84; RESP 16; TEMP 36.6; O2SAT 98; BMI 37.0
--- NOTE | 2025-05-05 09:07 | OBCLNT_ITS ---
Vital Signs 05/05/25 09:07 Height 1.4 m Height Method Stated Weight 72.575 kg Weight Measurement Method Standing Scale BMI 37.0 BP 112/74 Blood Pressure Source Automatic Cuff Blood Pressure Location Left Upper Arm Position Sitting Respiration 16 Pulse 84 Pulse Source Monitor Temp 98 F Temp Source Oral Pulse Oximetry (%) 98 Oxygen Delivery Method Room Air Allergies/Home Meds Allergies & Medications Allergies No Known Allergies Allergy (Verified 05/05/25 09:10) Medication Reconciliation vitamins with calcium no.72-iron 27 mg-folic acid 1 mg tablet ( Vitamins Plus Low Iron) 1 tab PO QDAY 90 days #90 tabs 12/19/24 [Rx Confirmed 05/05/25] aspirin 81 mg tablet,delayed release (Adult Aspirin Regimen) 81 mg PO QDAY #60 tabs 01/07/25 [Rx Confirmed 05/05/25] vitamin-ferrous fumarate 28 mg iron-folic acid 800 mcg tablet ( Vitamins with Minerals) 1 tab PO QDAY 30 days #60 tabs 01/07/25 [Rx Confirmed 05/05/25] aspirin 81 mg tablet,delayed release (Adult Aspirin Regimen) 81 mg PO QDAY #60 tabs 03/17/25 [Rx Confirmed 05/05/25] blood-glucose meter #1 ea 04/07/25 [Rx Confirmed 05/05/25] lancets #100 ea 04/07/25 [Rx Confirmed 05/05/25] blood sugar diagnostic (Blood Glucose Test strips) #10 ea 04/21/25 [Rx Confirmed 05/05/25] Intake Visit Data Collection New Patient or Established: Established Patient (seen at [facility] within 3 years) Reason for Visit:: CARE Seen by Clinical Staff ONLY (RN/MA): No Fsr Required: No Do You Feel Safe at Home: Yes Authorities Contacted: N/A PCP or OBGYN visit in last 3 months: Yes Hx Now: Yes Are you currently on any form of Control: No Pain Present Currently: No Pain Scale Used: Johnson-Mcfarland/Numerical Pain scale:: 0 Smoking Status Smoking Status: Never smoker Questionnaires Covid-19 Vaccine Questionnaire Has patient been vacinated for Covid-19 Have you been vacinated for Covid-19: Yes PHQ-9 PHQ-2 Over the last 2 weeks, how often have you been bothered by any of the following problems? 1. Little interest or pleasure in doing things: not at all 2. Feeling down, depressed, or hopeless: not at all Total score: 0 PHQ-9 3. Trouble falling or staying asleep, or sleeping too much: Not at all 4. Feeling tired or having little energy: Not at all 5. Poor appetite or overeating: Not at all 6. Feeling bad about yourself - or that you are a failure or have let yourself or your family down: Not at all 7. Trouble concentrating on things, such as reading the newspaper or watching television: Not at all 8. Moving or speaking so slowly that other people could have noticed? - Or the opposite - being so fidgety or restless that you have been moving around a lot more than usual: not at all 9. Thoughts that you would be better off or of hurting yourself in some way: Not at all Total score: 0 Source: Developed by Drs. Yung Cintron, Tracey Sood, Jesse Trejo and colleagues, with an educational migue from [employer]. Depression screen completed yes Social History Living Situation History Lives With: Family Housing Other:: MOBILE HOME Tobacco History Smoking Status: Never smoker Second Hand Smoke Exposure: No Alcohol History Alcohol Intake: Never Domestic Abuse History Do You Feel Safe at Home: Yes Care OB Visit Log OB Flowsheet Initial Weight: Not Recorded Date -?-?-?-?-?-?-?-?-?-?-?-?- EGA Weight BP Alb Glu CTX Pres Fundal ht FHR Mov Dilation Station Effacement Hx Notes Visit Note 12/10/24 -?-?-?-?-?-?-?-?-?-?-?-?- 12w 3d 68.946 kg 131/82 145 Adri Carrizales, 39-year-old at 12w3d gestation (LMP 09/14/2024, [place] 06/21/2025), presents to establish care. No CTX/LOF/VB. No DUKES/VS, Epig/RUQ pain. Reports nausea without vomiting. History of chronic hypertension. BP elevated today. Fsr used (Danish-speaking only). Ultrasound (12/10/2024): FHR 151 bpm, [place] 12w5d (consistent with LMP). Assessment & Plan: at 12w3d with confirmed intrauterin e . History of chronic hypertension. Advanced maternal age. Continue vitamins Prescribe antiemetic for nausea Order labs due to elevated BP Add advanced maternal age to problem lis t Follow-up in 4 weeks for routine care and BP monitoring 01/07/25 -?-?-?-?-?-?-?-?-?-?-?-?- 16w 3d 69.003 kg 113/73 unknown 17 135 No OB complaints, light FM, need refill of pnv, no sab complaints schedule MFM referral for AMA, refill PNV, start low dose ASA, zithromax 1 gm to patient and partner, discuss with patient lab result and treatment. no sex x 1 week, condom x 2 week, discuss safe sex, also RX for macrobid 100mg bid x 7 for UTI, increase fluid. sab precaution. rtc 4 week schedule MFM referral for AM A, refill PNV, start low dose ASA, zithromax 1 gm to patient and partner, discuss with patient lab result and treatment. no sex x 1 week, condom x 2 week, discuss safe sex, also RX for macrobid 100mg bid x 7 for UTI, increase fluid. sab precaution. rtc 4 week, AFP today 02/17/25 -?-?-?-?-?-?-?-?-?-?-?-?- 22w 2d 70.931 kg 114/78 absent unknown 22 145 active no OB complaints.fetus active. patient did not P/U zithromax for her or partner, still sex active, , mfm appt. 03/11. no PTL complaints refill zithromax x 2 for pt and partner, no sex, reviewed CT+ with patient and discuss safe sex, keep MFM appt 03/1103/17/25 -?-?-?-?-?-?-?-?-?-?-?-?- 26w 2d 71.781 kg 118/78 absent unknown 25 145 active Denies OB complaints. Denies PIH complaints. Reports movement. Patient and partner completed Zithromax as directed. And Macrobid for UTI. Denies leaking, bleeding, contractions. Maternal- medicine follow-up in 6 to 8 weeks Keep appointment for maternal- medicine follow-up sono. Start low-dose baby aspirin. Prescription called to pharmacy. NuSwab today. Ordered third trimester labs along with 24-hour urine and PIH labs. Discussed danger signs and symptoms PTL precautions. Increase fluids. Return in 3 weeks OB check 04/07/25 -?-?-?-?-?-?-?-?-?-?-?-?- 29w 2d 71.894 kg 113/74 absent unknown 29 140 active No OB complaints today. Reports movement. Denies leaking, bleeding, contractions. Reports compliance with safe sex. Reviewed labs. Discussed labor precautions. Tdap today. Increase fluids. Return in 2 weeks OB check Reviewed labs. Discussed pr eterm labor precautions. Tdap today. Increase fluids. Return in 2 weeks OB check. Discussed 3-hour results. Ordered glucometer, lancets, test strips. Discussed GDM diet and glucose glucose monitoring with patient return in 3 weeks. Will order NST BPP next visit 04/21/25 -?-?--?-?-?-?-?-?-?-?-?-?- 31w 2d 72.745 kg 113/73 100 mg/dL (74-106) absent unknow n 31 135 active Reports movement. Denies labor. Denies contractions. Denies bleeding. Reports compliance with diet and activity. Test of cure for GC and Chlamydia were negative. And log ging results. Schedule weekly NST BPP. I reordered test strips and Flagyl 500 p.o. twice daily for trichomoniasis. Discussed labor precautions and kick count. Increase fluids. Return in 2 weeks for OB check 05/05/25 -?-?-?-?-?-?-?-?-?-?-?-?- 33w 2d 72.575 kg 112/74 absent cephalic 33 145 active Reports good movement. Denies complaints of labor. Compliant with sugars. Goal about 95% of the time. Walk 40 minutes a day. Kick count twice a day. Increase fluids. Patient has a follow-up MFM in 6 weeks Continue to monitor blood sugars 3 times a day. Continue weekly NST BPP. Kick counts twice a day. Patient has a follow-up MFM in May. Return in 2 weeks OB check [place] Calculator Estimated Delivery Date Method Current WG Current Estimate 06/21/25 LMP (Certain) 33w 2d Other Estimates 06/22/25 Ultrasound #1 33w 1d 06/21/25 Ultrasound #2 33w 2d 06/21/25 Manual 33w 2d MFM sono on 02/12 9: EFW was 93% Notes Visit Date: 04/07/25 Last Updated by: Dea Lance CNM 03/10: GC/CT ERIC-, A1: 5.0, 3hr gtt: 1,2,3 value high. + GDM Visit Date: 03/17/25 Last Updated by: Dea Lance CNM 39 yo LMP 09/14/24. EDC 06/21/25. OB panel: O+,abs+: Anti [place],no titer. , rpr;;nr, rub imm, hbsag-,hiv-,HC-, GC-/CT+(treated). UTI/tx. UT-, NIPT- /girl. carrier screen-.AFP- Office Procedures OB Clinic LOC & Office Proc's Nursing/Assessment Patient Status: Established Patient OB Clinic Nursing Assessment: Medication Reconciliation, Update PMH in EMR and Vital Signs OB Clinic Coordination of Care: AMA, Complex Care and Chronic Disease 1-5, Consent,records obtained, informed consent, Education Simp Pt/Fam, 1 Ins Authorization, Lab and Imaging orders, Results/Orders obtained and Staff clarify orders Special Needs: Heart tones Established Patient Charge Established Patient Point Assignment: 170 Established Patient Point Charge: EP Level 5 (160-above) Assessment & Plan Diagnosis / Problem List (1) Diet controlled White classification A1 gestational diabetes mellitus (GDM): Status: Acute (2) Encounter for supervision of high risk in third trimester, antepartum: Status: Acute Plan Begin weekly NST BPP. Discussed kick counts twice a day. Continue to log sugars 4 times a day. Continue GDM diet. Walk 40 minutes a day. Discussed labor precautions. Return in 2 weeks OB check Additional Plan Follow Up: 2 Weeks (obc)
== END 2025-05-05 09:53 | disposition home or self-care (01) ==
LOC: HODSOBC 08:58
PROVIDERS: Supervising Provider Advanced Practice Midwife; Visit Provider Advanced Practice Midwife
DX: O09.893 Supervision of other high risk pregnancies, third trimester (principal); O24.410 Gestational diabetes mellitus in pregnancy, diet controlled; O09.523 Supervision of elderly multigravida, third trimester; Z3A.33 33 weeks gestation of pregnancy
CPT/HCPCS: 99215; G0463

== ENCOUNTER 2025-05-15 13:10 | Outpatient (CLI) | payer MEDICAID, SELFPAY ==
[2025-05-15 14:50] VITALS: BP 111/72; PULSE 75; RESP 100; RESP 16; TEMP 36.8; BMI 30.7
--- NOTE | 2025-05-15 14:51 | XR_ITS ---
Examination: Biophysical profile, ultrasound Date and time of exam: May 15, 2025, 1521 hours INDICATIONS: Nonreactive NST today, diagnosis gestational diabetes Technique: Multiple transabdominal sonographic images of the pelvis abdomen obtained. Attention is directed to the breathing movement, gross body movement, amniotic fluid volume and tone. Findings: Amniotic fluid index 10.6 cm Total biophysical profile is 8 of 8. breathing movement is 2. Gross body movement is 2. tone is 2. Qualitative amniotic fluid volume is 2 Impression: Biophysical profile is 8 of 8.
[2025-05-15 14:53] VITALS: BP 111/72; PULSE 71
[2025-05-15 14:54] VITALS: PULSE 76; O2SAT 100
== END 2025-05-15 17:26 | disposition home or self-care (01) ==
LOC: S4S1 13:11 → S4SX 13:12
PROVIDERS: Referring Provider Advanced Practice Midwife; Visit Provider Advanced Practice Midwife
DX: Z34.93 Encounter for supervision of normal pregnancy, unspecified, third trimester (principal); Z36.9 Encounter for antenatal screening, unspecified; Z3A.34 34 weeks gestation of pregnancy
CPT/HCPCS: 59025; 76819

== ENCOUNTER 2025-05-20 09:23 | Outpatient (RCR) | payer MEDICAID, SELFPAY ==
--- NOTE | 2025-05-06 09:03 | XR_ITS ---
Examination: Biophysical profile, ultrasound Date and time of exam: May 06, 2025, 0937 hours INDICATIONS: Diagnosis gestational diabetes Technique: Multiple transabdominal sonographic images of the pelvis abdomen obtained. Attention is directed to the breathing movement, gross body movement, amniotic fluid volume and tone. Findings: Amniotic fluid index 16.8 cm Total biophysical profile is 8 of 8. breathing movement is 2. Gross body movement is 2. tone is 2. Qualitative amniotic fluid volume is 2 Impression: Biophysical profile is 8 of 8.
[2025-05-06 10:15] VITALS: BP 102/70; PULSE 84; RESP 16; TEMP 37
--- NOTE | 2025-05-13 09:04 | XR_ITS ---
Examination: Biophysical profile, ultrasound Date and time of exam: May 13, 2025, 0911 hours INDICATIONS: Diagnosis gestational diabetes Technique: Multiple transabdominal sonographic images of the pelvis abdomen obtained. Attention is directed to the breathing movement, gross body movement, amniotic fluid volume and tone. Findings: Amniotic fluid index 12.0 cm Total biophysical profile is 8 of 8. breathing movement is 2. Gross body movement is 2. tone is 2. Qualitative amniotic fluid volume is 2 Impression: Biophysical profile is 8 of 8.
[2025-05-13 09:27] VITALS: BP 109/64; PULSE 81; RESP 16; TEMP 36.8
--- NOTE | 2025-05-20 09:29 | XR_ITS ---
Examination: Biophysical profile, ultrasound Date and time of exam: May 20, 2025, 0930 hours INDICATIONS: Diagnosis advanced maternal age, diagnoses gestational diabetes Technique: Multiple transabdominal sonographic images of the pelvis abdomen obtained. Attention is directed to the breathing movement, gross body movement, amniotic fluid volume and tone. Findings: Amniotic fluid index 11.5 cm Total biophysical profile is 8 of 8. breathing movement is 2. Gross body movement is 2. tone is 2. Qualitative amniotic fluid volume is 2 Impression: Biophysical profile is 8 of 8.
[2025-05-20 09:54] VITALS: BP 105/68; PULSE 88; RESP 16; TEMP 37.1
== END 2025-05-20 23:59 | disposition home or self-care (01) ==
LOC: S4S1 09:23
PROVIDERS: Referring Provider Advanced Practice Midwife; Visit Provider Advanced Practice Midwife
DX: O09.523 Supervision of elderly multigravida, third trimester (principal); O24.410 Gestational diabetes mellitus in pregnancy, diet controlled; O09.93 Supervision of high risk pregnancy, unspecified, third trimester; Z3A.35 35 weeks gestation of pregnancy
CPT/HCPCS: 59025; 76819

== ENCOUNTER 2025-05-21 10:42 | Outpatient (AMB) | payer MEDICAID, SELFPAY ==
--- NOTE | 2025-05-21 10:52 | OBCLNT_ITS ---
Vital Signs 05/21/25 10:53 Height 1.4 m Height Method Stated Weight 75.353 kg Weight Measurement Method Standing Scale BMI 38.4 BP 119/77 Blood Pressure Source Automatic Cuff Blood Pressure Location Right Upper Arm Position Sitting Respiration 17 Pulse 73 Pulse Source Monitor Temp 97.9 F Temp Source Temporal Artery Scan Pulse Oximetry (%) 98 Oxygen Delivery Method Room Air Allergies/Home Meds Allergies & Medications Allergies No Known Allergies Allergy (Verified 05/21/25 10:58) Medication Reconciliation vitamin-ferrous fumarate 28 mg iron-folic acid 800 mcg tablet ( Vitamins with Minerals) 1 tab PO QDAY 30 days #60 tabs 01/07/25 [Rx Confirmed 05/21/25] aspirin 81 mg tablet,delayed release (Adult Aspirin Regimen) 81 mg PO QDAY #60 tabs 03/17/25 [Rx Confirmed 05/21/25] blood-glucose meter #1 ea 04/07/25 [Rx Confirmed 05/21/25] blood sugar diagnostic (Blood Glucose Test strips) #50 ea 05/21/25 [Rx] lancets #100 ea 05/21/25 [Rx] Intake Visit Data Collection New Patient or Established: Established Patient (seen at [facility] within 3 years) Reason for Visit:: OBC Seen by Clinical Staff ONLY (RN/MA): No Clinical Services Manager Required: No Do You Feel Safe at Home: Yes Authorities Contacted: N/A PCP or OBGYN visit in last 3 months: Yes Date of Last PCP or OBGYN visit: 05/05/25 Hx Now: Yes Are you currently on any form of Control: No Pain Present Currently: No Pain Scale Used: Johnson-Mcfarland/Numerical Pain scale:: 0 Smoking Status Smoking Status: Never smoker Questionnaires Covid-19 Vaccine Questionnaire Has patient been vacinated for Covid-19 Have you been vacinated for Covid-19: No PHQ-9 PHQ-2 Over the last 2 weeks, how often have you been bothered by any of the following problems? 1. Little interest or pleasure in doing things: not at all 2. Feeling down, depressed, or hopeless: not at all Total score: 0 PHQ-9 3. Trouble falling or staying asleep, or sleeping too much: Not at all 4. Feeling tired or having little energy: Not at all 5. Poor appetite or overeating: Not at all 6. Feeling bad about yourself - or that you are a failure or have let yourself or your family down: Not at all 7. Trouble concentrating on things, such as reading the newspaper or watching television: Not at all 8. Moving or speaking so slowly that other people could have noticed? - Or the opposite - being so fidgety or restless that you have been moving around a lot more than usual: not at all 9. Thoughts that you would be better off or of hurting yourself in some way: Not at all Total score: 0 If you checked off any problems, how difficult have these problems made it for you to do your work, take care of things at home, or get along with other people?: not difficult at all Source: Developed by Drs. Yung Cintron, Tracey Sood, Jesse Trejo and colleagues, with an educational migue from [employer]. Depression screen completed yes Social History Living Situation History Marital Status: Lives With: Family Housing: House Housing Other:: MOBILE HOME Tobacco History Smoking Status: Never smoker Second Hand Smoke Exposure: No Alcohol History Alcohol Intake: Never Domestic Abuse History Do You Feel Safe at Home: Yes Care OB Visit Log OB Flowsheet Initial Weight: Not Recorded Date -?-?-?-?-?-?-?-?-?-?-?-?- EGA Weight BP Alb Glu CTX Pres Fundal ht FHR Mov Dilation Station Effacement Hx Notes Visit Note 12/10/24 -?-?-?-?-?-?-?-?-?-?-?-?- 12w 3d 68.946 kg 131/82 145 Adri Carrizales, 39-year-old at 12w3d gestation (LMP 09/14/2024, [place] 06/21/2025), presents to establish care. No CTX/LOF/VB. No DUKES/VS, Epig/RUQ pain. Reports nausea without vomiting. History of chronic hypertension. BP elevated today. Clinical Services Manager used (Malay-speaking only). Ultrasound (12/10/2024): FHR 151 bpm, [place] 12w5d (consistent with LMP). Assessment & Plan: at 12w3d with confirmed intrauterin e . History of chronic hypertension. Advanced maternal age. Continue vitamins Prescribe antiemetic for nausea Order labs due to elevated BP Add advanced maternal age to problem lis t Follow-up in 4 weeks for routine care and BP monitoring 01/07/25 -?-?-?-?-?-?-?-?-?-?-?-?- 16w 3d 69.003 kg 113/73 unknown 17 135 No OB complaints, light FM, need refill of pnv, no sab complaints schedule MFM referral for AMA, refill PNV, start low dose ASA, zithromax 1 gm to patient and partner, discuss with patient lab result and treatment. no sex x 1 week, condom x 2 week, discuss safe sex, also RX for macrobid 100mg bid x 7 for UTI, increase fluid. sab precaution. rtc 4 week schedule MFM referral for AM A, refill PNV, start low dose ASA, zithromax 1 gm to patient and partner, discuss with patient lab result and treatment. no sex x 1 week, condom x 2 week, discuss safe sex, also RX for macrobid 100mg bid x 7 for UTI, increase fluid. sab precaution. rtc 4 week, AFP today 02/17/25 -?-?-?-?-?-?-?-?-?-?-?-?- 22w 2d 70.931 kg 114/78 absent unknown 22 145 active no OB complaints.fetus active. patient did not P/U zithromax for her or partner, still sex active, , mfm appt. 03/11. no PTL complaints refill zithromax x 2 for pt and partner, no sex, reviewed CT+ with patient and discuss safe sex, keep MFM appt 03/1103/17/25 -?-?-?-?-?-?-?-?-?-?-?-?- 26w 2d 71.781 kg 118/78 absent unknown 25 145 active Denies OB complaints. Denies PIH complaints. Reports movement. Patient and partner completed Zithromax as directed. And Macrobid for UTI. Denies leaking, bleeding, contractions. Maternal- medicine follow-up in 6 to 8 weeks Keep appointment for maternal- medicine follow-up sono. Start low-dose baby aspirin. Prescription called to pharmacy. NuSwab today. Ordered third trimester labs along with 24-hour urine and PIH labs. Discussed danger signs and symptoms PTL precautions. Increase fluids. Return in 3 weeks OB check 04/07/25 -?-?-?-?-?-?-?-?-?-?-?-?- 29w 2d 71.894 kg 113/74 absent unknown 29 140 active No OB complaints today. Reports movement. Denies leaking, bleeding, contractions. Reports compliance with safe sex. Reviewed labs. Discussed labor precautions. Tdap today. Increase fluids. Return in 2 weeks OB check Reviewed labs. Discussed pr eterm labor precautions. Tdap today. Increase flui ds. Return in 2 weeks OB check. Discussed 3-hour results. Ordered glucometer, lancets, test strips. Discussed GDM diet and glucose glucose monitoring with patient return in 3 weeks. Will order NST BPP next visit 04/21/25 -?-?-?-?-?-?-?-?-?-?-?-?- 31w 2d 72.745 kg 113/73 100 mg/dL (74-106) absent unknow n 31 135 active Reports movement. Denies labor. Denies contractions. Denies bleeding. Reports compliance with diet and activity. Test of cure for GC and Chlamydia were negative. And log ging results. Schedule weekly NST BPP. I reordered test strips and Flagyl 500 p.o. twice daily for trichomoniasis. Discussed labor precautions and kick count. Increase fluids. Return in 2 weeks for OB check 05/05/25 -?-?-?-?-?-?-?-?-?-?-?-?- 33w 2d 72.575 kg 112/74 absent cephalic 33 145 active Reports good movement. Denies complaints of labor. Compliant with sugars. Goal about 95% of the time. Walk 40 minutes a day. Kick count twice a day. Increase fluids. Patient has a follow-up MFM in 6 weeks Continue to monitor blood sugars 3 times a day. Continue weekly NST BPP. Kick counts twice a day. Patient has a follow-up MFM in May. Return in 2 weeks OB check 05/21/25 -?-?-?-?-?-?-?-?-?-?-?-?- 35w 4d 75.353 kg 119/77 absent cephalic 35 145 active Reports good movement. Denies leaking or bleeding. Denies contractions, Follow-up [facility] May 30. Sugars are at goal 95%. Continue GDM diet and monitoring sugars. I reordered lancets. Continue biweekly NST BPP. Kick count twice a day. Walk 40 minutes a day. GBS today. Return in a week OB check Follow-up May 30. S ugars are at goal 95%. Continue GDM diet and monitoring sugars. I reordered lancets. Continue biweekly NST BPP. Kick count twice a day. Walk 40 minutes a day. GBS today. Return in a week OB check. IOL 06/14/25 Follow-up [facility] May 30. S ugars are at goal 95%. Continue GDM diet and monitoring sugars. I reordered lancets. Continue biweekly NST BPP. Kick count twice a day. Walk 40 minutes a day. GBS today. Return in a week OB check. IOL 06/14/25. NST/BPP bi wk [place] Calculator Estimated Delivery Date Method Current WG Current Estimate 06/21/25 LMP (Certain) 35w 5d Other Estimates 06/22/25 Ultrasound #1 35w 4d 06/21/25 Ultrasound #2 35w 5d 06/21/25 Manual 35w 5d MFM sono on 02/12 9: EFW was 93% Notes Visit Date: 04/07/25 Last Updated by: Dea Lance CNM 03/10: GC/CT ERIC-, A1: 5.0, 3hr gtt: 1,2,3 value high. + GDM Visit Date: 03/17/25 Last Updated by: Dea Lance CNM 39 yo LMP 09/14/24. EDC 06/21/25. OB panel: O+,abs+: Anti [place],no titer. , rpr;;nr, rub imm, hbsag-,hiv-,HC-, GC-/CT+(treated). UTI/tx. UT-, NIPT- /girl. carrier screen-.AFP- Office Procedures OBC Clinic LOC & Office Proc's Nursing/Assessment Patient Status: Established Patient OB Clinic Nursing Assessment: Medication Reconciliation, Update PMH in EMR and Vital Signs OB Clinic Coordination of Care: Complex Care and Chronic Disease 1-5, Education Complex Pt/Fam, Consent,records obtained, informed consent, Lab and Imaging orders and Staff clarify orders Special Needs: Heart tones Miscellaneous Interventions: Culture Specimen Collection Established Patient Charge Established Patient Point Assignment: 150 Established Patient Point Charge: EP Level 4 (120-155) Assessment & Plan Diagnosis / Problem List (1) Diet controlled White classification A1 gestational diabetes mellitus (GDM): Status: Acute (2) Encounter for supervision of high risk in third trimester, antepartum: Status: Acute Plan Schedule induction of labor for June 14, 2025. Discussed labor precautions and kick count. Continue vitamins. GBS today. Continue GDM diet. I reviewed logging and parameters with patient. And continue weekly NST BPP and patient has a follow-up [facility] May 30 for growth. Return in a week OB check Additional Plan Follow Up: 1 Week (obc)
[2025-05-21 10:53] VITALS: BP 119/77; PULSE 73; RESP 17; TEMP 36.6; O2SAT 98; BMI 38.4
== END 2025-05-21 11:12 | disposition home or self-care (01) ==
LOC: HODSOBC 10:42
PROVIDERS: Supervising Provider Advanced Practice Midwife; Visit Provider Advanced Practice Midwife
DX: O09.893 Supervision of other high risk pregnancies, third trimester (principal); O24.410 Gestational diabetes mellitus in pregnancy, diet controlled; O09.523 Supervision of elderly multigravida, third trimester; Z3A.35 35 weeks gestation of pregnancy; Z36.85 Encounter for antenatal screening for Streptococcus B
CPT/HCPCS: 99214; G0463

== ENCOUNTER 2025-05-22 10:09 | Outpatient (CLI) | payer MEDICAID, SELFPAY ==
[2025-05-22] VITALS (11 sets, daily range): BP systolic 111; BP diastolic 81; PULSE 70–87; RESP 20–99; TEMP 37.1; O2SAT 98–100; BMI 37.5
--- NOTE | 2025-05-22 10:21 | XR_ITS ---
Examination: Biophysical profile, ultrasound Date and time of exam: May 22, 2025, 1047 hours INDICATIONS: Diagnosis advanced maternal age, diagnosis gestational diabetes Technique: Multiple transabdominal sonographic images of the pelvis abdomen obtained. Attention is directed to the breathing movement, gross body movement, amniotic fluid volume and tone. Findings: Amniotic fluid index 11.3 cm Total biophysical profile is 8 of 8. breathing movement is 2. Gross body movement is 2. tone is 2. Qualitative amniotic fluid volume is 2 Impression: Biophysical profile is 8 of 8.
== END 2025-05-22 12:00 | disposition home or self-care (01) ==
LOC: S4S1 10:10 → S4SX 10:10
PROVIDERS: Referring Provider Obstetrics & Gynecology; Visit Provider Obstetrics & Gynecology
DX: Z36.9 Encounter for antenatal screening, unspecified (principal); Z34.83 Encounter for supervision of other normal pregnancy, third trimester; Z3A.35 35 weeks gestation of pregnancy
CPT/HCPCS: 59025; 76819

== ENCOUNTER 2025-05-26 11:12 | Outpatient (AMB) | payer MEDICAID, SELFPAY ==
[2025-05-26 11:24] VITALS: BP 126/82; PULSE 78; RESP 14; TEMP 36.8; O2SAT 98; BMI 38.5
--- NOTE | 2025-05-26 11:24 | AMB.OBVISIT ---
Vital Signs 05/26/25 11:24 Height 1.4 m Height Method Stated Weight 75.466 kg Weight Measurement Method Standing Scale BMI 38.5 BP 126/82 Blood Pressure Source Automatic Cuff Blood Pressure Location Left Upper Arm Position Sitting Respiration 14 Pulse 78 Pulse Source Monitor Temp 98.2 F Temp Source Oral Pulse Oximetry (%) 98 Oxygen Delivery Method Room Air Allergies/Home Meds Allergies & Medications Allergies No Known Allergies Allergy (Verified 05/26/25 11:25) Medication Reconciliation vitamin-ferrous fumarate 28 mg iron-folic acid 800 mcg tablet ( Vitamins with Minerals) 1 tab PO QDAY 30 days #60 tabs 01/07/25 [Rx Confirmed 05/26/25] aspirin 81 mg tablet,delayed release (Adult Aspirin Regimen) 81 mg PO QDAY #60 tabs 03/17/25 [Rx Confirmed 05/26/25] blood-glucose meter #1 ea 04/07/25 [Rx Confirmed 05/26/25] blood sugar diagnostic (Blood Glucose Test strips) #50 ea 05/21/25 [Rx Confirmed 05/26/25] lancets #100 ea 05/21/25 [Rx Confirmed 05/26/25] Intake Visit Data Collection New Patient or Established: Established Patient (seen at [facility] within 3 years) Reason for Visit:: CARE Seen by Clinical Staff ONLY (RN/MA): No Professor Of Family Medicine Required: No Do You Feel Safe at Home: Yes Authorities Contacted: N/A PCP or OBGYN visit in last 3 months: Yes Hx Now: Yes Are you currently on any form of Control: No Pain Present Currently: No Pain Scale Used: Johnson-Mcfarland/Numerical Pain scale:: 0 Smoking Status Smoking Status: Never smoker Questionnaires Covid-19 Vaccine Questionnaire Has patient been vacinated for Covid-19 Have you been vacinated for Covid-19: No PHQ-9 PHQ-2 Over the last 2 weeks, how often have you been bothered by any of the following problems? 1. Little interest or pleasure in doing things: not at all 2. Feeling down, depressed, or hopeless: not at all Total score: 0 PHQ-9 3. Trouble falling or staying asleep, or sleeping too much: Not at all 4. Feeling tired or having little energy: Not at all 5. Poor appetite or overeating: Not at all 6. Feeling bad about yourself - or that you are a failure or have let yourself or your family down: Not at all 7. Trouble concentrating on things, such as reading the newspaper or watching television: Not at all 8. Moving or speaking so slowly that other people could have noticed? - Or the opposite - being so fidgety or restless that you have been moving around a lot more than usual: not at all 9. Thoughts that you would be better off or of hurting yourself in some way: Not at all Total score: 0 Source: Developed by Drs. Yung Cintron, Tracey Sood, Jesse Trejo and colleagues, with an educational migue from [employer]. Depression screen completed yes Social History Living Situation History Lives With: Family Housing: House Housing Other:: MOBILE HOME Tobacco History Smoking Status: Never smoker Second Hand Smoke Exposure: No Alcohol History Alcohol Intake: Never Domestic Abuse History Do You Feel Safe at Home: Yes Care OB Visit Log OB Flowsheet Initial Weight: Not Recorded Date <del>?</del> EGA Weight BP Alb Glu CTX Pres Fundal ht FHR Mov Dilation Station Effacement Hx Notes Visit Note 12/10/24 <del>?</del> 12w 3d 68.946 kg 131/82 145 Adri Carrizales, 39-year-old at 12w3d gestation (LMP 09/14/2024, [place] 06/21/2025), presents to establish care. No CTX/LOF/VB. No DUKES/VS, Epig/RUQ pain. Reports nausea without vomiting. History of chronic hypertension. BP elevated today. Professor Of Family Medicine used (Hebrew-speaking only). Ultrasound (12/10/2024): FHR 151 bpm, [place] 12w5d (consistent with LMP). Assessment & Plan: at 12w3d with confirmed intrauterine . History of chronic hypertension. Advanced maternal age. Continue vitamins Prescribe antiemetic for nausea Order labs due to elevated BP Add advanced maternal age to problem list Follow-up in 4 weeks for routine care and BP monitoring 01/07/25 <del>?</del> 16w 3d 69.003 kg 113/73 unknown 17 135 No OB complaints, light FM, need refill of pnv, no sab complaints schedule MFM referral for AMA, refill PNV, start low dose ASA, zithromax 1 gm to patient and partner, discuss with patient lab result and treatment. no sex x 1 week, condom x 2 week, discuss safe sex, also RX for macrobid 100mg bid x 7 for UTI, increase fluid. sab precaution. rtc 4 week schedule MFM referral for AMA, refill PNV, start low dose ASA, zithromax 1 gm to patient and partner, discuss with patient lab result and treatment. no sex x 1 week, condom x 2 week, discuss safe sex, also RX for macrobid 100mg bid x 7 for UTI, increase fluid. sab precaution. rtc 4 week, AFP today 02/17/25 <del>?</del> 22w 2d 70.931 kg 114/78 absent unknown 22 145 active no OB complaints.fetus active. patient did not P/U zithromax for her or partner, still sex active, , mfm appt. 03/11. no PTL complaints refill zithromax x 2 for pt and partner, no sex, reviewed CT+ with patient and discuss safe sex, keep MFM appt 03/1103/17/25 <del>?</del> 26w 2d 71.781 kg 118/78 absent unknown 25 145 active Denies OB complaints. Denies PIH complaints. Reports movement. Patient and partner completed Zithromax as directed. And Macrobid for UTI. Denies leaking, bleeding, contractions. Maternal- medicine follow-up in 6 to 8 weeks Keep appointment for maternal- medicine follow-up sono. Start low-dose baby aspirin. Prescription called to pharmacy. NuSwab today. Ordered third trimester labs along with 24-hour urine and PIH labs. Discussed danger signs and symptoms PTL precautions. Increase fluids. Return in 3 weeks OB check 04/07/25 <del>?</del> 29w 2d 71.894 kg 113/74 absent unknown 29 140 active No OB complaints today. Reports movement. Denies leaking, bleeding, contractions. Reports compliance with safe sex. Reviewed labs. Discussed labor precautions. Tdap today. Increase fluids. Return in 2 weeks OB check Reviewed labs. Discussed labor precautions. Tdap today. Increase fluids. Return in 2 weeks OB check. Discussed 3-hour results. Ordered glucometer, lancets, test strips. Discussed GDM diet and glucose glucose monitoring with patient return in 3 weeks. Will order NST BPP next visit 04/21/25 <del>?</del> 31w 2d 72.745 kg 113/73 100 mg/dL (74-106) absent unknown 31 135 active Reports movement. Denies labor. Denies contractions. Denies bleeding. Reports compliance with diet and activity. Test of cure for GC and Chlamydia were negative. And logging results. Schedule weekly NST BPP. I reordered test strips and Flagyl 500 p.o. twice daily for trichomoniasis. Discussed labor precautions and kick count. Increase fluids. Return in 2 weeks for OB check 05/05/25 <del>?</del> 33w 2d 72.575 kg 112/74 absent cephalic 33 145 active Reports good movement. Denies complaints of labor. Compliant with sugars. Goal about 95% of the time. Walk 40 minutes a day. Kick count twice a day. Increase fluids. Patient has a follow-up MFM in 6 weeks Continue to monitor blood sugars 3 times a day. Continue weekly NST BPP. Kick counts twice a day. Patient has a follow-up MFM in May. Return in 2 weeks OB check 05/21/25 <del>?</del> 35w 4d 75.353 kg 119/77 absent cephalic 35 145 active Reports good movement. Denies leaking or bleeding. Denies contractions, Follow-up MFM May 30. Sugars are at goal 95%. Continue GDM diet and monitoring sugars. I reordered lancets. Continue biweekly NST BPP. Kick count twice a day. Walk 40 minutes a day. GBS today. Return in a week OB check Follow-up MFM May 30. Sugars are at goal 95%. Continue GDM diet and monitoring sugars. I reordered lancets. Continue biweekly NST BPP. Kick count twice a day. Walk 40 minutes a day. GBS today. Return in a week OB check. IOL 06/14/25 Follow-up [facility] May 30. Sugars are at goal 95%. Continue GDM diet and monitoring sugars. I reordered lancets. Continue biweekly NST BPP. Kick count twice a day. Walk 40 minutes a day. GBS today. Return in a week OB check. IOL 06/14/25. NST/BPP bi wk 05/26/25 <del>?</del> 36w 2d 75.466 kg 126/82 absent cephalic 36 145 active Reports good movement. Denies leaking or bleeding. Occasional contraction and pressure Reports good movement. Denies leaking or bleeding. Occasional contraction and pressure. sugars at goal 90% Kick count twice a day reviewed with patient. Patient scheduled for induction 14 June. Continue GDM diet and weekly NST BPP. Continue to log sugars. Return in a week OB check doing like [place] Calculator Estimated Delivery Date Method Current WG Current Estimate 06/21/25 LMP (Certain) 36w 2d Other Estimates 06/22/25 Ultrasound #1 36w 1d 06/21/25 Ultrasound #2 36w 2d 06/21/25 Manual 36w 2d [facility] sono on 03/11: EFW was 93% Notes Visit Date: 05/26/25 Last Updated by: Dea Lance CNM GBS- Visit Date: 04/07/25 Last Updated by: Dea Lance CNM 03/10: GC/CT ERIC-, A1: 5.0, 3hr gtt: 1,2,3 value high. + GDM Visit Date: 03/17/25 Last Updated by: Dea Lance CNM 39 yo LMP 09/14/24. EDC 06/21/25. OB panel: O+,abs+: Anti [place],no titer. , rpr;;nr, rub imm, hbsag-,hiv-,HC-, GC-/CT+(treated). UTI/tx. UT-, NIPT-/girl. carrier screen-.AFP- Office Procedures OB Clinic LOC & Office Proc's Nursing/Assessment Patient Status: Established Patient OB Clinic Nursing Assessment: Medication Reconciliation, Update PMH in EMR and Vital Signs OB Clinic Coordination of Care: AMA, Complex Care and Chronic Disease 1-5, Consent,records obtained, informed consent, Education Simp Pt/Fam, 1 Ins Authorization, Lab and Imaging orders, Results/Orders obtained and Staff clarify orders Special Needs: Heart tones Established Patient Charge Established Patient Point Assignment: 170 Established Patient Point Charge: EP Level 5 (160-above) Assessment & Plan Diagnosis / Problem List (1) Diet controlled White classification A1 gestational diabetes mellitus (GDM): Status: Acute (2) Encounter for supervision of high risk in third trimester, antepartum: Status: Acute (3) Advanced maternal age affecting , antepartum: Status: Acute Plan Discussed labor precautions and kick count twice a day. Continue weekly NST BPP. Continue GDM diet and I reviewed again with patient. Increase fluids. Induction of labor June 14. Return in a week OB check Additional Plan Follow Up: 1 Week (obc)
== END 2025-05-26 11:44 | disposition home or self-care (01) ==
LOC: HODSOBC 11:12
PROVIDERS: Supervising Provider Advanced Practice Midwife; Visit Provider Advanced Practice Midwife
DX: O09.523 Supervision of elderly multigravida, third trimester (principal); O09.893 Supervision of other high risk pregnancies, third trimester; O24.410 Gestational diabetes mellitus in pregnancy, diet controlled; Z3A.36 36 weeks gestation of pregnancy
CPT/HCPCS: 99215; G0463

== ENCOUNTER 2025-05-26 11:58 | Outpatient (CLI) | payer MEDICAID, SELFPAY ==
[2025-05-26 12:11] VITALS: BP 116/80; PULSE 72; RESP 20; TEMP 37; BMI 37.5
[2025-05-26 12:12] VITALS: BP 116/80; PULSE 72
--- NOTE | 2025-05-26 12:14 | XR_ITS ---
Examination: Biophysical profile, ultrasound Date and time of exam: , 2024, 1300 hours INDICATIONS: Advanced maternal age Technique: Multiple transabdominal sonographic images of the pelvis abdomen obtained. Attention is directed to the breathing movement, gross body movement, amniotic fluid volume and tone. Findings: JEREMIAH Total biophysical profile is 8 of 8. breathing movement is 2. Gross body movement is 2. tone is 2. Qualitative amniotic fluid volume is 2 Impression: Biophysical profile is 8 of 8.
== END 2025-05-26 14:30 | disposition home or self-care (01) ==
LOC: S4S1 11:58 → S4SX 11:59
PROVIDERS: Referring Provider Advanced Practice Midwife; Visit Provider Advanced Practice Midwife
DX: O24.419 Gestational diabetes mellitus in pregnancy, unspecified control (principal); O09.523 Supervision of elderly multigravida, third trimester; Z3A.36 36 weeks gestation of pregnancy
CPT/HCPCS: 59025; 76819

== ENCOUNTER 2025-05-29 10:41 | Outpatient (CLI) | payer MEDICAID, SELFPAY ==
[2025-05-29] VITALS (13 sets, daily range): BP systolic 110; BP diastolic 73; PULSE 65–76; RESP 19–99; TEMP 36.9; O2SAT 99–100; BMI 39.2
--- NOTE | 2025-05-29 11:00 | XR_ITS ---
Examination: Biophysical profile, ultrasound Date and time of exam: May 29, 2025, 1113 hours INDICATIONS: Diagnosis gestational diabetes, diagnosis advanced maternal age Technique: Multiple transabdominal sonographic images of the pelvis abdomen obtained. Attention is directed to the breathing movement, gross body movement, amniotic fluid volume and tone. Findings: Amniotic fluid index 6.7 cm Total biophysical profile is 8 of 8. breathing movement is 2. Gross body movement is 2. tone is 2. Qualitative amniotic fluid volume is 2 Impression: Biophysical profile is 8 of 8.
--- NOTE | 2025-05-29 15:45 | PD.LDPN ---
Documentation for date of: 05/29/25 OB Labor Progress Note Pelvic Exam Amniotic membrane status: Intact Status status: Category l Assessment and Plan Comments: Triage note for antepartum testing Adri is a 40yo [id number] SIUP at 36&5wk presenting to L&D for antepartum testing indicated for A1GDM, AMA. She notes no painful/regular ctx, no vaginal bleeding, no loss of fluid. Normal movement. PMhx/PNC significant for: -AMA age 40 -A1GDM. Followed by MFM. -PNC with ANTHONY Lance ROS negative other than what was described above. Vitals wnl, afebrile General: well developed, well nourished, no acute distress, conversant Cardiac: normal heart rate Lungs: breathing without distress Abdomen: soft, gravid, non-tender, no rebound or guarding Extremities: no edema of BLE NST: Reactive, +accels, no decels, mod harman Trumann: no regular ctx pattern Radiology: Biophysical profile, ultrasound Date and time of exam: May 29, 2025, 1113 hours INDICATIONS: Diagnosis gestational diabetes, diagnosis advanced maternal age Technique: Multiple transabdominal sonographic images of the pelvis abdomen obtained. Attention is directed to the breathing movement, gross body movement, amniotic fluid volume and tone. Findings: Amniotic fluid index 6.7 cm Total biophysical profile is 8 of 8. breathing movement is 2. Gross body movement is 2. tone is 2. Qualitative amniotic fluid volume is 2 Impression: Biophysical profile is 8 of 8. Assessment: Adri is a 40yo [id number] SIUP at 36&5wk with reassuring maternal and status based on NST and BPP. Patient had BPP on 05/26 and at that time JEREMIAH was 6.9cm, so stable between then and today. Vitals wnl, benign exam. Plan: -Follow up as scheduled with ANTHONY Lance for routine visit and also twice weekly APFTs -Return precautions discussed. Mariama Dia MD
== END 2025-05-29 11:48 | disposition home or self-care (01) ==
LOC: S4S1 10:42 → S4SX 10:42
PROVIDERS: Referring Provider Obstetrics & Gynecology; Visit Provider Obstetrics & Gynecology
DX: O24.419 Gestational diabetes mellitus in pregnancy, unspecified control (principal); O09.523 Supervision of elderly multigravida, third trimester; Z3A.36 36 weeks gestation of pregnancy
CPT/HCPCS: 59025; 76819

== ENCOUNTER 2025-06-03 11:24 | Outpatient (AMB) | payer MEDICAID, SELFPAY ==
[2025-06-03 11:31] VITALS: BP 126/80; PULSE 75; RESP 14; TEMP 36.6; O2SAT 98; BMI 38.7
--- NOTE | 2025-06-03 11:31 | OBCLNT_ITS ---
Vital Signs 06/03/25 11:31 Height 1.4 m Height Method Stated Weight 75.863 kg Weight Measurement Method Standing Scale BMI 38.7 BP 126/80 Blood Pressure Source Automatic Cuff Blood Pressure Location Left Upper Arm Position Sitting Respiration 14 Pulse 75 Pulse Source Monitor Temp 97.8 F Temp Source Oral Pulse Oximetry (%) 98 Oxygen Delivery Method Room Air Allergies/Home Meds Allergies & Medications Allergies No Known Allergies Allergy (Verified 06/03/25 11:32) Medication Reconciliation vitamin-ferrous fumarate 28 mg iron-folic acid 800 mcg tablet ( Vitamins with Minerals) 1 tab PO QDAY 30 days #60 tabs 01/07/25 [Rx Confirmed 06/03/25] aspirin 81 mg tablet,delayed release (Adult Aspirin Regimen) 81 mg PO QDAY #60 tabs 03/17/25 [Rx Confirmed 06/03/25] blood-glucose meter #1 ea 04/07/25 [Rx Confirmed 06/03/25] blood sugar diagnostic (Blood Glucose Test strips) #50 ea 05/21/25 [Rx Confirmed 06/03/25] lancets #100 ea 05/21/25 [Rx Confirmed 06/03/25] Intake Visit Data Collection New Patient or Established: Established Patient (seen at [facility] within 3 years) Reason for Visit:: CARE Seen by Clinical Staff ONLY (RN/MA): No Senior Government Program Analyst Required: No Do You Feel Safe at Home: Yes Authorities Contacted: N/A PCP or OBGYN visit in last 3 months: Yes Hx Now: Yes Are you currently on any form of Control: No Pain Present Currently: No Pain Scale Used: Johnson-Mcfarland/Numerical Pain scale:: 0 Smoking Status Smoking Status: Never smoker Immunizations Flu Vaccine in the Last 12 Months: No Flu Vaccine Exclusion Criteria: No Exclusion Criteria Questionnaires Covid-19 Vaccine Questionnaire Has patient been vacinated for Covid-19 Have you been vacinated for Covid-19: No PHQ-9 PHQ-2 Over the last 2 weeks, how often have you been bothered by any of the following problems? 1. Little interest or pleasure in doing things: not at all 2. Feeling down, depressed, or hopeless: not at all Total score: 0 PHQ-9 3. Trouble falling or staying asleep, or sleeping too much: Not at all 4. Feeling tired or having little energy: Not at all 5. Poor appetite or overeating: Not at all 6. Feeling bad about yourself - or that you are a failure or have let yourself or your family down: Not at all 7. Trouble concentrating on things, such as reading the newspaper or watching television: Not at all 8. Moving or speaking so slowly that other people could have noticed? - Or the opposite - being so fidgety or restless that you have been moving around a lot more than usual: not at all 9. Thoughts that you would be better off or of hurting yourself in some way: Not at all Total score: 0 Source: Developed by Drs. Yung Cintron, Tracey Sood, Jesse Trejo and colleagues, with an educational migue from [employer]. Depression screen completed yes Social History Living Situation History Lives With: Family Housing: House Housing Other:: MOBILE HOME Tobacco History Smoking Status: Never smoker Second Hand Smoke Exposure: No Alcohol History Alcohol Intake: Never Domestic Abuse History Do You Feel Safe at Home: Yes Care OB Visit Log OB Flowsheet Initial Weight: Not Recorded Date -?-?-?-?-?-?-?-?-?-?-?-?- EGA Weight BP Alb Glu CTX Pres Fundal ht FHR Mov Dilation Station Effacement Hx Notes Visit Note 12/10/24 -?-?-?-?-?-?-?-?-?-?-?-?- 12w 3d 68.946 kg 131/82 145 Adri Carrizales, 39-year-old at 12w3d gestation (LMP 09/14/2024, [place] 06/21/2025), presents to establish care. No CTX/LOF/VB. No DUKES/VS, Epig/RUQ pain. Reports nausea without vomiting. History of chronic hypertension. BP elevated today. Senior Government Program Analyst used (Peruvian-speaking only). Ultrasound (12/10/2024): FHR 151 bpm, GA 12w5d (consistent with LMP). Assessment & Plan: at 12w3d with confirmed intrauterin e . History of chronic hypertension. Advanced maternal age. Continue vitamins Prescribe antiemetic for nausea Order labs due to elevated BP Add advanced maternal age to problem lis t Follow-up in 4 weeks for routine care and BP monitoring 01/07/25 -?-?-?-?-?-?-?-?-?-?-?-?- 16w 3d 69.003 kg 113/73 unknown 17 135 No OB complaints, light FM, need refill of pnv, no sab complaints schedule MFM referral for AMA, refill PNV, start low dose ASA, zithromax 1 gm to patient and partner, discuss with patient lab result and treatment. no sex x 1 week, condom x 2 week, discuss safe sex, also RX for macrobid 100mg bid x 7 for UTI, increase fluid. sab precaution. rtc 4 week schedule MFM referral for AM A, refill PNV, start low dose ASA, zithromax 1 gm to patient and partner, discuss with patient lab result and treatment. no sex x 1 week, condom x 2 week, discuss safe sex, also RX for macrobid 100mg bid x 7 for UTI, increase fluid. sab precaution. rtc 4 week, AFP today 02/17/25 -?-?-?-?-?-?-?-?-?-?-?-?- 22w 2d 70.931 kg 114/78 absent unknown 22 145 active no OB complaints.fetus active. patient did not P/U zithromax for her or partner, still sex active, , mfm appt. 03/11. no PTL complaints refill zithromax x 2 for pt and partner, no sex, reviewed CT+ with patient and discuss safe sex, keep MFM appt 03/1103/17/25 -?-?-?-?-?-?-?-?-?-?-?-?- 26w 2d 71.781 kg 118/78 absent unknown 25 145 active Denies OB complaints. Denies PIH complaints. Reports movement. Patient and partner completed Zithromax as directed. And Macrobid for UTI. Denies leaking, bleeding, contractions. Maternal- medicine follow-up in 6 to 8 weeks Keep appointment for maternal- medicine follow-up sono. Start low-dose baby aspirin. Prescription called to pharmacy. NuSwab today. Ordered third trimester labs along with 24-hour urine and PIH labs. Discussed danger signs and symptoms PTL precautions. Increase fluids. Return in 3 weeks OB check 04/07/25 -?-?-?-?-?-?-?-?-?-?-?-?- 29w 2d 71.894 kg 113/74 absent unknown 29 140 active No OB complaints today. Reports movement. Denies leaking, bleeding, contractions. Reports compliance with safe sex. Reviewed labs. Discussed labor precautions. Tdap today. Increase fluids. Return in 2 weeks OB check Reviewed labs. Discussed pr eterm labor precautions. Tdap today. Increase fluids. Return in 2 weeks OB check. Discussed 3-hour results. Ordered glucometer, lancets, test strips. Discussed GDM diet and glucose glucose monitoring with patient return in 3 weeks. Will order NST BPP next visit 04/21/25 -?-?-?-?-?-?-?-?-?-?-?-?- 31w 2d 72.745 kg 113/73 100 mg/dL (74-106) absent unknow n 31 135 active Reports movement. Denies labor. Denies contractions. Denies bleeding. Reports compliance with diet and activity. Test of cure for GC and Chlamydia were negative. And log ging results. Schedule weekly NST BPP. I reordered test strips and Flagyl 500 p.o. twice daily for trichomoniasis. Discussed labor precautions and kick count. Increase fluids. Return in 2 weeks for OB check 05/05/25 -?-?-?-?-?-?-?-?-?-?-?-?- 33w 2d 72.575 kg 112/74 absent cephalic 33 145 active Reports good movement. Denies complaints of labor. Compliant with sugars. Goal about 95% of the time. Walk 40 minutes a day. Kick count twice a day. Increase fluids. Patient has a follow-up MFM in 6 weeks Continue to monitor blood sugars 3 times a day. Continue weekly NST BPP. Kick counts twice a day. Patient has a follow-up MFM in May. Return in 2 weeks OB check 05/21/25 -?-?-?-?-?-?-?-?-?-?-?-?- 35w 4d 75.353 kg 119/77 absent cephalic 35 145 active Reports good movement. Denies leaking or bleeding. Denies contractions, Follow-up MFM May 30. Sugars are at goal 95%. Continue GDM diet and monitoring sugars. I reordered lancets. Continue biweekly NST BPP. Kick count twice a day. Walk 40 minutes a day. GBS today. Return in a week OB check Follow-up [facility] May 30. S ugars are at goal 95%. Continue GDM diet and monitoring sugars. I reordered lancets. Continue biweekly NST BPP. Kick count twice a day. Walk 40 minutes a day. GBS today. Return in a week OB check. IOL 06/14/25 Follow-up [facility] May 30. S ugars are at goal 95%. Continue GDM diet and monitoring sugars. I reordered lancets. Continue biweekly NST BPP. Kick count twice a day. Walk 40 minutes a day. GBS today. Return in a week OB check. IOL 06/14/25. NST/BPP bi wk 05/26/25 -?-?-?-?-?-?-?-?-?-?-?-?- 36w 2d 75.466 kg 126/82 absent cephalic 36 145 active Reports good movement. Denies leaking or bleeding. Occasional contraction and pressure Reports good movement. Denies leaking or bleeding. Occasional contraction and pressure. sugars at goal 90% Kick count twice a day reviewed with patient. Patient scheduled for induction 14 June. Continue GDM diet and weekly NST BPP. Continue to log sugars. Return in a week OB check doing like 06/03/25 -?-?-?-?-?-?-?-?-?-?-?-?- 37w 3d 75.863 kg 126/80 occasional cephalic 37 145 active Reports good movement. Patient is compliant with weekly NST BPP. Dr. Porter had called and spoke with OB on-call about the fetus weighing in the 98th percentile and suggested that this patient have a primary due to increased risk of shoulder dystocia. Patient reports that fastings and her sugars after meals are all within goal. Reports good movement. Denies leaking or bleeding. Reports occasional contractions I discussed with patient the need for primary C- section. Patient agrees to plan of care. Patient was scheduled with OB to schedule . She is to continue to monitor her blood sugars as directed 4 times a day. And continue with weekly NST BPP. Reviewed kick count twice a day. So return with 1 week with OB to schedule suction [place] Calculator Estimated Delivery Date Method Current WG Current Estimate 06/21/25 LMP (Certain) 37w 3d Other Estimates 06/22/25 Ultrasound #1 37w 2d 06/21/25 Ultrasound #2 37w 3d 06/21/25 Manual 37w 3d MFM sono on 02/12 9: EFW was 93% Notes Visit Date: 05/26/25 Last Updated by: Dea Lance CNM GBS- Visit Date: 04/07/25 Last Updated by: Dea Lance CNM 03/10: GC/CT ERIC-, A1: 5.0, 3hr gtt: 1,2,3 value high. + GDM Visit Date: 03/17/25 Last Updated by: Dea Lance CNM 39 yo LMP 09/14/24. EDC 06/21/25. OB panel: O+,abs+: Anti [place],no titer. , rpr;;nr, rub imm, hbsag-,hiv-,HC-, GC-/CT+(treated). UTI/tx. UT-, NIPT- /girl. carrier screen-.AFP- Office Procedures O[facility] Clinic LOC & Office Proc's Nursing/Assessment Patient Status: Established Patient OB Clinic Nursing Assessment: Medication Reconciliation, Update PMH in EMR and Vital Signs OB Clinic Coordination of Care: AMA, Complex Care and Chronic Disease 1-5, Consent,records obtained, informed consent, Education Simp Pt/Fam, 1 Ins Authorization, Lab and Imaging orders, Results/Orders obtained and Staff clarify orders Special Needs: Heart tones Established Patient Charge Established Patient Point Assignment: 170 Established Patient Point Charge: EP Level 5 (160-above) Assessment & Plan Diagnosis / Problem List (1) Diet controlled White classification A1 gestational diabetes mellitus (GDM): Status: Acute (2) Encounter for supervision of high risk in third trimester, antepartum: Status: Acute (3) Advanced maternal age affecting , antepartum: Status: Acute Plan Schedule primary for increased risk of shoulder dystocia due to macrosomia and GDM. Continue GDM diet and to monitor blood sugars 4 times a day. Walk 40 minutes daily. Kick count twice a day. Continue weekly NST BPP and patient was scheduled with OB to schedule primary Additional Plan Follow Up: 1 Week (obc)
== END 2025-06-03 11:53 | disposition home or self-care (01) ==
LOC: HODSOBC 11:24
PROVIDERS: Supervising Provider Advanced Practice Midwife; Visit Provider Advanced Practice Midwife
DX: O09.893 Supervision of other high risk pregnancies, third trimester (principal); O24.410 Gestational diabetes mellitus in pregnancy, diet controlled; O09.523 Supervision of elderly multigravida, third trimester; Z3A.37 37 weeks gestation of pregnancy
CPT/HCPCS: 99215; G0463

== ENCOUNTER 2025-07-23 11:35 | Outpatient (AMB) | payer MEDICAID, SELFPAY ==
--- NOTE | 2025-07-23 11:44 | AMBOBPPN_ITS ---
Vital Signs 07/23/25 11:45 Height 1.4 m Height Method Stated Weight 68.152 kg Weight Measurement Method Standing Scale BMI 34.7 BP 119/85 H Blood Pressure Source Automatic Cuff Blood Pressure Location Left Upper Arm Position Sitting Respiration 16 Pulse 82 Pulse Source Monitor Temp 97.8 F Temp Source Oral Pulse Oximetry (%) 97 Oxygen Delivery Method Room Air Allergies/Home Meds Allergies & Medications Allergies No Known Allergies Allergy (Verified 07/23/25 11:46) Medication Reconciliation vitamin-ferrous fumarate 28 mg iron-folic acid 800 mcg tablet ( Vitamins with Minerals) 1 tab PO QDAY 30 days #60 tabs 01/07/25 [Rx Confirmed 07/23/25] aspirin 81 mg tablet,delayed release (Adult Aspirin Regimen) 81 mg PO QDAY #60 tabs 03/17/25 [Rx Confirmed 07/23/25] blood-glucose meter #1 ea 04/07/25 [Rx Confirmed 07/23/25] blood sugar diagnostic (Blood Glucose Test strips) #50 ea 05/21/25 [Rx Confirmed 07/23/25] lancets #100 ea 05/21/25 [Rx Confirmed 07/23/25] Intake Visit Data Collection New Patient or Established: Established Patient (seen at [facility] within 3 years) Reason for Visit:: Seen by Clinical Staff ONLY (RN/MA): No Freight Car Loader Required: No Do You Feel Safe at Home: Yes Authorities Contacted: N/A PCP or OBGYN visit in last 3 months: Yes Hx Now: Yes Are you currently on any form of Control: No Pain Present Currently: No Pain Scale Used: Johnson-Mcfarland/Numerical Pain scale:: 0 Smoking Status Smoking Status: Never smoker Immunizations Flu Vaccine in the Last 12 Months: Yes Flu Vaccine Exclusion Criteria: Already Received STRAW BOSS: Past Medical History Past Medical History: No Hx Neurological Disorders, No Hx Cardiac Disorders, No Hx Blood Disorders, No Hx Gastrointestinal Disorders, No Hx Renal Disease, No Hx Diabetes Mellitus Type 1, No Hx Diabetes Mellitus Type 2, No Hx Tubal Ligation and No Hx Hysterectomy Questionnaires Covid-19 Vaccine Questionnaire Has patient been vacinated for Covid-19 Have you been vacinated for Covid-19: No Social History Living Situation History Lives With: Family Housing: TRAILER Housing Other:: MOBILE HOME Tobacco History Smoking Status: Never smoker Second Hand Smoke Exposure: No Alcohol History Alcohol Intake: Never Domestic Abuse History Do You Feel Safe at Home: Yes EPDS - PP Depression Screening [place] Pos[place] Depression Screen I have been able to laugh and see the funny side of things: (0) As much as I always could I have looked forward with enjoyment to things: (0) As much as I ever did I have blamed myself unnecessarily when things went wrong: (0) No, never I have been anxious or worried for no good reason: (0) No, not at all I have felt scared or panicky for no very good reason: (0) No, not at all Things have been getting on top of me: (0) No, I have been coping as well as ever I have been so unhappy that I have had difficulty sleeping: (0) No, not at all I have felt sad or miserable: (0) No, not at all I have been so unhappy that I have been crying: (0) No, never The thought of harming myself has occurred to me: (0) Never EPDS completed yes Care OB Visit Log OB Flowsheet Initial Weight: Not Recorded Date -?-?-?-?-?-?-?-?-?-?-?-?- EGA Weight BP Alb Glu CTX Pres Fundal ht FHR Mov Dilation Station Effacement Hx Notes Visit Note 12/10/24 -?-?-?-?-?-?-?-?-?-?-?-?- 12w 3d 68.946 kg 131/82 145 Adri Carrizales, 39-year-old at 12w3d gestation (LMP 09/14/2024, [place]IE 06/21/2025), presents to establish care. No CTX/LOF/VB. No DUKES/VS, Epig/RUQ pain. Reports nausea without vomiting. History of chronic hypertension. BP elevated today. Freight Car Loader used (Grenadian-speaking only). Ultrasound (12/10/2024): FHR 151 bpm, GA 12w5d (consistent with LMP). Assessment & Plan: at 12w3d with confirmed intrauterin e . History of chronic hypertension. Advanced maternal age. Continue vitamins Prescribe antiemetic for nausea Order labs due to elevated BP Add advanced maternal age to problem lis t Follow-up in 4 weeks for routine care and BP monitoring 01/07/25 -?-?-?-?-?-?-?-?-?-?-?-?- 16w 3d 69.003 kg 113/73 unknown 17 135 No OB complaints, light FM, need refill of pnv, no sab complaints schedule MFM referral for AMA, refill PNV, start low dose ASA, zithromax 1 gm to patient and partner, discuss with patient lab result and treatment. no sex x 1 week, condom x 2 week, discuss safe sex, also RX for macrobid 100mg bid x 7 for UTI, increase fluid. sab precaution. rtc 4 week schedule MFM referral for AM A, refill PNV, start low dose ASA, zithromax 1 gm to patient and partner, discuss with patient lab result and treatment. no sex x 1 week, condom x 2 week, discuss safe sex, also RX for macrobid 100mg bid x 7 for UTI, increase fluid. sab precaution. rtc 4 week, AFP today 02/17/25 -?-?-?-?-?-?-?-?-?-?-?-?- 22w 2d 70.931 kg 114/78 absent unknown 22 145 active no OB complaints.fetus active. patient did not P/U zithromax for her or partner, still sex active, , [facility]. no PTL complaints refill zithromax x 2 for pt and partner, no sex, reviewed CT+ with patient and discuss safe sex, keep MFM appt 03/1103/17/25 -?-?-?-?-?-?-?-?-?-?-?-?- 26w 2d 71.781 kg 118/78 absent unknown 25 145 active Denies OB complaints. Denies PIH complaints. Reports movement. Patient and partner completed Zithromax as directed. And Macrobid for UTI. Denies leaking, bleeding, contractions. Maternal- medicine follow-up in 6 to 8 weeks Keep appointment for maternal- medicine follow-up sono. Start low-dose baby aspirin. Prescription called to pharmacy. NuSwab today. Ordered third trimester labs along with 24-hour urine and PIH labs. Discussed danger signs and symptoms PTL precautions. Increase fluids. Return in 3 weeks OB check 04/07/25 -?-?-?-?-?-?-?-?-?-?-?-?- 29w 2d 71.894 kg 113/74 absent unknown 29 140 active No OB complaints today. Reports movement. Denies leaking, bleeding, contractions. Reports compliance with safe sex. Reviewed labs. Discussed labor precautions. Tdap today. Increase fluids. Return in 2 weeks OB check Reviewed labs. Discussed pr eterm labor precautions. Tdap today. Increase fluids. Return in 2 weeks OB check. Discussed 3-hour results. Ordered glucometer, lancets, test strips. Discussed GDM diet and glucose glucose monitoring with patient return in 3 weeks. Will order NST BPP next visit 04/21/25 -?-?-?-?-?-?-?-?-?-?-?-?- 31w 2d 72.745 kg 113/73 100 mg/dL (74-106) absent unknow n 31 135 active Reports movement. Denies labor. Denies contractions. Denies bleeding. Reports compliance with diet and activity. Test of cure for GC and Chlamydia were negative. And log ging results. Schedule weekly NST BPP. I reordered test strips and Flagyl 500 p.o. twice daily for trichomoniasis. Discussed labor precautions and kick count. Increase fluids. Return in 2 weeks for OB check 05/05/25 -?-?-?-?-?-?-?-?-?-?-?-?- 33w 2d 72.575 kg 112/74 absent cephalic 33 145 active Reports good movement. Denies complaints of labor. Compliant with sugars. Goal about 95% of the time. Walk 40 minutes a day. Kick count twice a day. Increase fluids. Patient has a follow-up MFM in 6 weeks Continue to monitor blood sugars 3 times a day. Continue weekly NST BPP. Kick counts twice a day. Patient has a follow-up MFM in May. Return in 2 weeks OB check 05/21/25 -?-?-?-?-?-?-?-?-?-?-?-?- 35w 4d 75.353 kg 119/77 absent cephalic 35 145 active Reports good movement. Denies leaking or bleeding. Denies contractions, Follow-up [facility] May 30. Sugars are at goal 95%. Continue GDM diet and monitoring sugars. I reordered lancets. Continue biweekly NST BPP. Kick count twice a day. Walk 40 minutes a day. GBS today. Return in a week OB check Follow-up [facility] May 30. S ugars are at goal 95%. Continue GDM diet and monitoring sugars. I reordered lancets. Continue biweekly NST BPP. Kick count twice a day. Walk 40 minutes a day. GBS today. Return in a week OB check. IOL 06/14/25 Follow-up [facility] May 30. S ugars are at goal 95%. Continue GDM diet and monitoring sugars. I reordered lancets. Continue biweekly NST BPP. Kick count twice a day. Walk 40 minutes a day. GBS today. Return in a week OB check. IOL 06/14/25. NST/BPP bi wk 05/26/25 -?-?-?-?-?-?-?-?-?-?-?-?- 36w 2d 75.466 kg 126/82 absent cephalic 36 145 active Reports good movement. Denies leaking or bleeding. Occasional contraction and pressure Reports good movement. Denies leaking or bleeding. Occasional contraction and pressure. sugars at goal 90% Kick count twice a day reviewed with patient. Patient scheduled for induction 14 June. Continue GDM diet and weekly NST BPP. Continue to log sugars. Return in a week OB check doing like 06/03/25 -?-?-?-?-?-?-?-?-?-?-?-?- 37w 3d 75.863 kg 126/80 occasional cephalic 37 145 active Reports good movement. Patient is compliant with weekly NST BPP. Dr. Porter had called and spoke with OB on-call about the fetus weighing in the 98th percentile and suggested that this patient have a primary due to increased risk of shoulder dystocia. Patient reports that fastings and her sugars after meals are all within goal. Reports good movement. Denies leaking or bleeding. Reports occasional contractions I discussed with patient the need for primary C- section. Patient agrees to plan of care. Patient was scheduled with OB to schedule . She is to continue to monitor her blood sugars as directed 4 times a day. And continue with weekly NST BPP. Reviewed kick count twice a day. So return with 1 week with OB to schedule suction [place] Calculator Estimated Delivery Date Method Current WG Current Estimate 06/21/25 LMP (Certain) 45w 2d Other Estimates 06/22/25 Ultrasound #1 45w 1d 06/21/25 Ultrasound #2 45w 2d 06/21/25 Manual 45w 2d MFM sono on 02/12 9: EFW was 93% Notes Visit Date: 05/26/25 Last Updated by: Dea Lance CNM GBS- Visit Date: 04/07/25 Last Updated by: Dea Lance CNM 03/10: GC/CT ERIC-, A1: 5.0, 3hr gtt: 1,2,3 value high. + GDM Visit Date: 03/17/25 Last Updated by: Dea Lance CNM 39 yo LMP 09/14/24. EDC 06/21/25. OB panel: O+,abs+: Anti [place],no titer. , rpr;;nr, rub imm, hbsag-,hiv-,HC-, GC-/CT+(treated). UTI/tx. UT-, NIPT- /girl. carrier screen-.AFP- HPI Interval History: 40-year-old 4 para 4 for 6-week visit. Patient had a vaginal June 04 37 weeks 3 days. History of GDM poor compliance with . Patient also had positive chlamydia and her and her partner were treated several times before negative culture was obtained. She has a history of herpes type II. No outbreaks during the . Patient states she is happy. No depression. She has breast and bottlefeeding. She had a baby girl that weighed 8 pounds. She did like to use Depo BCP contraception. However she just had sex 2 days ago she states with a condom. And she wants to get in the year. No other STRAW BOSS discomforts or complaints Was or delivery considered high risk: Yes Delivery type: vaginal Was labor induced: no Gestational age at delivery (weeks): 37.3 Delivery date: 06/04/25 Delivering provider: Angelika Delivery complications: No Is patient : Yes Is patient sexually active: Yes Contraception planned: BCP Review of Systems Review of Systems ROS limited to current STRAW BOSS complaints: Yes Exam Narrative Physical exam: Normal heart rate and rhythm. Lungs clear no wheezes. Abdomen is soft nontender. Uterus well involuted. Perineum is intact no lacerations. No swelling. Small lochia. Negative Homans' sign. 2+ DTRs. No edema no swelling. Breasts are soft Results Objective Laboratory: 2 hr gtt wnl, Nuswab neg for GC/CT and trich Office Procedures OBC Clinic LOC & Office Proc's Nursing/Assessment Patient Status: Established Patient OB Clinic Nursing Assessment: Medication Reconciliation, Update PMH in EMR and Vital Signs OB Clinic Coordination of Care: Complex Care and Chronic Disease 1-5, Consent,records obtained, informed consent, Education Simp Pt/Fam, 1 Ins Authorization, Lab and Imaging orders, Results/Orders obtained and Staff clarify orders Established Patient Charge Established Patient Point Assignment: 120 Established Patient Point Charge: EP Level 4 (120-155) Assessment & Plan Diagnosis / Problem List (1) Routine Follow-Up: Plan: No sex for 2 days. Discussed control options. Patient elects control pills. She would have like to start Plan B however she last had sex 2 days ago and said that it was unprotected. I ordered a 2-hour GTT because history of diabetes with . And also repeat GC and chlamydia. No sex for 2 weeks. Reviewed control pills with patient. Patient will come in 2 weeks for repeat Prag test and control start (2) 6 weeks follow-up: Status: Acute Care Reviewed delivery summary and any complications: Yes Uterus involuted to: 3 below Perineal / incision healing noted: Yes Screened for depression: Yes Depression counseling provided: No Discussed family planning & contraception: Yes Contraception planned: BCP Counseling on safe resumption of sexual activity: Yes Counseling on gradual excercise: Yes Discussed and concerns (describe), provided support: Yes Referred to supervisory training specialist: No Counseled on good nutrition, hydration, and self care: Yes Reviewed vaccine status: Yes Chronic & current problems reconciled on problem list: Yes Infant care discussed; questions answered: feeding Follow up: routine/prn Additional counseling & anticipatory guidance provided: no sex x 2 week, 2 hr gtt, rtc for BC start (FP) Tobacco Smoking Status: Never smoker
[2025-07-23 11:45] VITALS: BP 119/85; PULSE 82; RESP 16; TEMP 36.6; O2SAT 97; BMI 34.7
== END 2025-07-23 11:55 | disposition home or self-care (01) ==
LOC: HODSOBC 11:35
PROVIDERS: Supervising Provider Advanced Practice Midwife; Visit Provider Advanced Practice Midwife
DX: Z39.2 Encounter for routine postpartum follow-up (principal); Z39.1 Encounter for care and examination of lactating mother; O24.439 Gestational diabetes mellitus in the puerperium, unspecified control
CPT/HCPCS: 99214; G0463